=== PATIENT | male | born 1945 | race Caucasian/White ===

== ENCOUNTER 2024-02-10 01:14 | Inpatient (IN) | payer MEDICARE, BC, SELFPAY ==
[2024-02-10] VITALS (12 sets, daily range): BP systolic 111–185; BP diastolic 60–87; PULSE 60–97; RESP 16–90; TEMP 36.4–36.9; O2SAT 93–98; BMI 26.7
--- NOTE | 2024-02-10 | XR_ITS ---
Examination: MRI brain with intravenous contrast Technique: Multiple axial sagittal coronal MRI brain images post intravenous administration 18 cc gadolinium Indications: Syncopal episodes with right frontal neoplastic lesion and surrounding edema on CT brain scan this morning Findings: Enhancing right frontal lobe tumor 3.8 x 2.0 cm with surrounding edema Mass effect with 2 mm shift of the frontal horns to the left and depression, mild right frontal horn on coronal image 11 Adjacent 5 mm enhancing tumor nodule right frontal convexity axial image 22, coronal image 14 Impression: 2 enhancing right frontal lobe 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
--- NOTE | 2024-02-10 01:53 | PD.EDRME ---
Rapid Medical Screening Exam RME Arrival date/time: 02/10/24 01:14 78 year old male present to ED for c/o of GLF, hip, rib, head injury. I have greeted and performed a focused initial assessment of this patient. A comprehensive ED assessment and evaluation of the patient, analysis of all test results, and completion of the medical decision making process will be conducted by additional ED providers. Chief Complaint: Fall Time Seen by Provider: 02/10/24 05:51 Vital signs: Vital Signs Temperature 97.5 F 02/10/24 01:53 Pulse Rate 61 02/10/24 01:53 Respiratory Rate 16 02/10/24 01:53 Blood Pressure 153/87 H 02/10/24 01:53 Pulse Oximetry (%) 98 02/10/24 01:53 Oxygen Delivery Method Room Air 02/10/24 01:53
--- NOTE | 2024-02-10 01:54 | XR_ITS ---
Examination: CT cervical spine without contrast 2-D sagittal reconstructions 2-D coronal reconstructions 3-D reconstructions. Exam date and time:February 10, 2024 0226 hrs. Indications: Patient fell today with injury to the neck, neck pain CTDI:vol (mGy) 7.63 DLP: (mGycm) 187 Technique: Multiple 2 mm axial sections of the cervical spine have been obtained. The coronal and sagittal reconstructions have been obtained. 3-D reconstructions have been obtained. Low dose protocols were performed. One or more of the following dose reduction techniques were used; automated exposure control, adjustment of the mA and/or KV according to patient size, use of iterative reconstruction technique. Findings: Axial sections demonstrate intact base of the skull. C1 exhibit satisfactory relationship to the odontoid. No acute cervical vertebral body fracture seen. Alignment posterior spinous processes satisfactory. Impression: No acute cervical fracture. 10 mm spiculated pulmonary nodule right upper lobe
--- NOTE | 2024-02-10 01:54 | XR_ITS ---
Examination: CT brain head without contrast. 2-D sagittal coronal reconstructions Date and time of exam:February 10, 2024 1426 hrs. Indications: Ground-level fall today with injury to the head, head pain CTDI: vol (mGy):51.3 DLP: (mGycm):1064 Technique: Multiple CT axial sections of the brain have been obtained, 5 mm slice thickness. Contrast has not been administered. 2-D sagittal, coronal reconstructions have been obtained Low dose protocols were performed. One or more of the following dose reduction techniques were used; automated exposure control, adjustment of the mA and/or KV according to patient size, use of iterative reconstruction technique. Findings: 12 mm hypodense lesion right frontal lobe with surrounding prominent edema suspicious for cerebral neoplasm Mass effect upon the anterior right lateral ventricle Shifted frontal horns to the left at least 3 mm No acute hemorrhage Cranial vault intact Chronic right mastoiditis Impression: Recommend brain MRI follow-up, pre and postcontrast, to confirm right frontal lobe cerebral neoplasm, differential would include cerebral metastatic lesion, primary brain tumor Mass effect is above
--- NOTE | 2024-02-10 01:54 | XR_ITS ---
Examination: CT chest, without intravenous contrast. CT abdomen, without intravenous contrast. CT pelvis, without intravenous contrast. 2-D sagittal and coronal reconstructions. 3-D reconstructions. Date and time of exam:February 10, 2024 0232 hrs. Indications: Ground-level fall today with injury to the chest and abdomen, chest pain abdomen pain CTDI vol (mgy) 8.44 DLP (MGycm)659 Technique: Multiple CT images, 3.0 mm slice thickness, obtained chest, abdomen, pelvis, with the high-resolution 64 slice scanner.. Sagittal and coronal 2-D reconstructions are obtained. 3-D reconstructions Low dose protocols were performed. One or more of the following dose reduction techniques were used; automated exposure control, adjustment of the mA and/or KV according to patient size, use of iterative reconstruction technique. Findings: Thoracic aorta pulmonary arteries intact Calcification left main left anterior descending left circumflex coronary arteries No hemopericardium No pneumothorax Multiple bilateral pulmonary nodules, the largest in the right upper lobe 11 mm No pulmonary contusion or hemothorax The manubrium and the body the sternum thoracic vertebral bodies intact Ribs appear Fracture right fourth fifth rib, age-indeterminate No liver splenic or renal laceration No perinephric hematoma Suspicious for small gallstones Abdominal aorta intact, no free blood in the abdomen Negative for pneumoperitoneum Intact urinary bladder No lumbar vertebral body fracture Iliac bones, hips bones of the pelvis intact Impression: Age-indeterminate nondisplaced fractures right fourth and fifth ribs anteriorly Thoracic aorta pulmonary arteries intact Multiple bilateral pulmonary nodules, the largest in the right upper lobe 11 mm, differential would include pulmonary nodular metastatic disease No pneumothorax hemothorax hemopericardium or pulmonary contusion No abdominal parenchymal laceration No free blood in the abdomen or pelvis
[2024-02-10] MEDS: LIDOCAINE 5% 1 PATCH TOP (02:53)
--- NOTE | 2024-02-10 03:43 | PRELIM_ITS ---
CT scan of the head without intravenous contrast (axial sections with sagittal and coronal reformats) . February 10, 2024 at 0226 hoursClinical history: Head injury S/P GLF distracting injuriesFindings:T here shanelle 1.4 x 1cm hypodense lesion with surrounding vasogenic edema in the right frontal lobe. There is no evidence of intracranial hemorrhage or midline shift. There are periventricular white matter h ypodensities, compatible with chronic small vessel ischemia. There is mild volume loss. The calvarium is unremarkable. There is atheromatous calcification of the intracranial arteries.The mastoid air ce lls are partially opacified, more on the right. Small retention cysts or polyps are seen in the right maxillary sinus. The other visualized paranasal sinuses are clear.Impression:1. A 1.4 x1 cm hypodens e lesion with surrounding vasogenic edema in the right frontal lobe, suspicious for neoplasm. Recomme nd clinical correlation, and further evaluationwith MRI with intravenous contrast, if clinically sabino cated.2. No evidence of intracranial hemorrhage or midline shift.3. Chronic small vessel ischemia and volume loss.Discussion Details: Results verbally communicated to : Dr. Green at 03:32 AM 4 Report Electronically Signed By: Jennyfer Covarrubias 02/10/2024 3:43:27 AM [EST]
--- NOTE | 2024-02-10 03:50 | PRELIM_ITS ---
CT scan of the cervical spine without intravenous contrast (axial sections with sagittal and coronal reformats) February 10, 2024 0226 hours Clinical History: head injury, distracting injuries, r/o frac ture No prior study is available for comparison. Findings:The bones are osteopenic. There is no fract ure or subluxation. There is minimal anterolisthesis of C5 on C6 vertebra. There is straightening of the cervical lordosis, which may be due to muscle spasm or positioning. There are multilevel degenera tive changes in the form of marginal osteophytes, decreased disc height, uncinate process, and facet arthrosis, most prominent at the C5-C6 and C6-C7 levels causing mild spinal canal and bilateral neura l foraminal narrowing. The prevertebral soft tissues are unremarkable. There is a 8 mm nodule at the right lung apex.Impression:No evidence of fracture or subluxation.Degenerative changes as described a sara. A 8 mm nodule at the right lung apex. Recommend clinical correlation. Report Electronically Si gned By: Jennyfer Covarrubias 02/10/2024 3:49:41 AM [EST]
--- NOTE | 2024-02-10 04:01 | PRELIM_ITS ---
CT scan of the chest, abdomen and pelvis without intravenous contrast (axial sections with sagittal a nd coronal reformats) February 10, 2024 at 0232 hoursClinical History: Rib/hip injury status post lauren und level fall, rule out fracture.Comparison: No prior study is available for comparison.Findings:The re is a 1.1cm nodule with spiculated margins. There are calcified nodules in the right upper lobe, me asuring up to 5 mm. There are several scattered pulmonary nodules, measuring up to 4 mm. There is no pleural effusion or pneumothorax. The thoracic aorta demonstrates atheromatous calcification without evidence of aneurysm. Coronary artery calcification is noted. There is no mediastinal collection. The re is no pericardial effusion.The liver, spleen, pancreas and adrenals are unremarkable on this nonco ntrast study. Nonobstructing left renal calculus is seen. Dependent hyperdensity is identified within the gallbladder, which may represent sludge.There is evidence of gastric bypass. A moderate amount o f fecal material is present in the colon. The bowel is unremarkable.The urinary bladder is unremarkab le. The prostate is enlarged with its median lobe projecting within the bladder lumen.There is no evelyn e fluid or free air. The abdominal aorta demonstrates atheromatous calcification without evidence of aneurysm.There is mild diffuse subcutaneous fat stranding/edema.No fracture is identified. The bones are osteopenic. Degenerative changes are identified in the spine.Impression:1. No visceral or bony in jury to the chest, abdomen or pelvis.2. Several suspicious pulmonary nodules, the largest in the righ t upper lobe,measuring up to 1.1 cm. Recommend follow up with CT at 3 months.3. Other findings as enrique cribed above. Report Electronically Signed By: Jennyfer Covarrubias 02/10/2024 4:00:48 AM [EST]
--- NOTE | 2024-02-10 05:06 | EDNOTE_ITS ---
ED Fall Injury RME/HPI General Chief Complaint: Fall Stated Complaint: FELL,RIGHT RIB INJURY Time Seen by Provider: 02/10/24 05:51 Arrival date/time: 02/10/24 01:14 RME / HPI RME / HPI Narrative: 02/10/24 01:14 78 year old male present to ED for c/o of GLF, hip, rib, head injury. I have greeted and performed a focused initial assessment of this patient. A comprehensive ED assessment and evaluation of the patient, analysis of all test results, and completion of the medical decision making process will be conducted by additional ED providers. ------ Dr. Caldwell?s Main ED Evaluation: 78yo male presents to the ED for a fall. Patient states he just went down and hit his right side on a barbeque. Patient does not know why he fell. He endorses hitting his head, but no loss of consciousness. Patient endorses having right rib and hip pain. He denies any neck pain, abdominal pain or any other associated symptoms. Patient's notes the patient has an appointment with Dr. Ward on the first week of February due to having calcifications in his left ventricle. Related Data Home Medications ?Medication ?Instructions ?Recorded ?Confirmed amlodipine 2.5 mg tablet 2.5 mg 1XD 02/10/24 02/10/24 hydrochlorothiazide 12.5 mg tablet 12.5 mg 1XD 02/10/24 02/10/24 Previous Rx's ?Medication ?Instructions ?Recorded lidocaine 5 % topical patch 1 patch topical QDAY #30 ea 02/10/24 (Lidoderm) Allergies Allergy/AdvReac Type Severity Reaction Status Date / Time shellfish derived Allergy Severe Anaphylaxis Unverified 02/12/24 08:42 povidone-iodine Allergy Intermediate Hives Verified 02/10/24 01:18 ampicillin Allergy Anaphylaxis Verified 02/10/24 01:18 soap [From Betadine] Allergy Rash Verified 02/10/24 01:18 Review of Systems Review of Systems Systems Reviewed: All systems reviewed, normal except as documented Past Medical History Past Medical History NEUROLOGIC: Negative Neurological Disorders or Seizures CARDIAC: Positive Cardiac Disorders and Hypertension; Negative Congestive Heart Failure RESPIRATORY: Positive Chronic Obstructive Pulmonary Disease (COPD) and Asthma GASTROINTESTINAL: Positive Gastrointestinal Disorders and Gastroesophageal Reflux Disease GENITOURINARY: Positive Genitourinary Disorders, Kidney Stones and Benign Prostatic Hyperplasia; Negative Renal Disease MUSCULOSKELETAL: Negative Musculoskeletal Disorders ENT: Positive Cataracts ENDOCRINE: Negative Endocrine Disorders, Diabetes Mellitus Type 1 or Diabetes Mellitus Type 2 HEMATOLOGIC: Negative Blood Disorders, Anemia or Clotting Problems PSYCHO/SOCIAL: Negative Depression or Anxiety OTHER HISTORY: Negative Hospitalization, Falls, Blood Transfusions, Anesthesia Reactions or Cancer Surgical History SURGICAL: Positive Gastric Bypass Surgery and Vasectomy Social History SMOKING STATUS: Current every day smoker ED Exam Narrative Physical exam: GENERAL APPEARANCE: alert and oriented x 4, well-developed, well-nourished, no acute distress HEENT: Normocephalic, atraumatic; pupils equal, round, reactive to light; EOMI; mucous membranes pink, moist; oropharynx clear NECK: Supple LUNGS: CTABL; no wheezes, no rales, no rhonchi HEART: Regular rate, regular rhythm; normal S1, S2; no murmurs ABDOMEN: non distended; normal BS; soft, no tenderness, no guarding, no rebound; no masses, no organomegaly, no hernia BACK: no CVA tenderness EXTREMITIES: right hip tenderness, no deformity or shortening, no edema NEUROLOGIC: awake; alert and oriented x4; cranial nerves II-XII grossly intact; no focal sensory or motor deficits PSYCHIATRIC: appropriate mood and affect SKIN: warm, dry, normal color; no rashes; 1 cm skin tear to the back of the left hand Course Course Course Narrative: 0600: Care signed out to Dr. Patten (emergency physician). Past medical, surgical, social and family history reviewed. Vitals and home medications reviewed. Results and treatment plan discussed. They will assume the care of the patient at this time and will follow the patient, pending MRI and Xr. Quality Measures none Orders Category Date Time Status COVID-19 Screening Questionnaire NOW Care 02/10/24 11:13 Completed Decision to Admit X1 Care 02/10/24 11:13 Completed MRI Screening NOW Care 02/10/24 05:[address] cervical spine wo con Stat Exams 02/10/24 01:[address] chest abdomen pelvis wo Stat Exams 02/10/24 01:[address] head/brain wo con Stat Exams 02/10/24 01:54 Completed MR head/brain w con Stat Exams 02/10/24 Completed XR femur RT 2V Stat Exams 02/10/24 05:50 Completed BMP [Basic Metabolic Panel] Stat Lab 02/10/24 07:40 Completed HYDROcodone*/APAP 5/325 [[place] 5/325] Med 02/10/24 05:50 Discontinued 1 tab PO X1 ONE Lidocaine 5% Patch Med 02/10/24 01:58 Discontinued 1 patch TOP X1 ONE Vital Signs Vital signs: Vital Signs Temperature 97.5 F 02/10/24 01:53 Pulse Rate 61 02/10/24 01:53 Respiratory Rate 16 02/10/24 01:53 Blood Pressure 153/87 H 02/10/24 01:53 Pulse Oximetry (%) 98 02/10/24 01:53 Oxygen Delivery Method Room Air 02/10/24 01:53 Pulse ox is 98% on room air, which is normal according to my interpretation. Fall MDM Narrative MDM Narrative:: Scribe Attestation: 02/10/24 - Lanette Stark, am scribing for and in the presence of Dr. Caldwell. Patient data External records reviewed:: [facility] previous records (Per chart review, patient was seen here on 04/16/22 for bronchitis.) Clinical information provided by:: patient Social determinants that could affect healthcare access:: none Patient has the following chronic illnesses:: COPD, asthma, HTN How is presenting disease/condition affected by chronic disease/condition?: uneffected by Evaluation data The following diagnostics were reviewed and interpreted by me:: radiology exam(s) Lab and/or radiology exams considered but not ordered:: none Interpretation Summary: Teler[facility] Preliminary Report Draft Patient: KENNETH LUCIO [facility]. Record#: [id number] Birthdate: 1945 Age/Sex: 78 / M Location: [facility] Attending Dr: Ordering Physician: Date of Service: Procedure(s): Accession Number(s): cc: ~ CT scan of the head without intravenous contrast (axial sections with sagittal and coronal reformats). February 10, 2024 at 0226 hours Clinical history: Head injury S/P GLF distracting injuries Findings: There shanelle 1.4 x 1cm hypodense lesion with surrounding vasogenic edema in the right frontal lobe. There is no evidence of intracranial hemorrhage or midline shift. There are periventricular white matter hypodensities, compatible with chronic small vessel ischemia. There is mild volume loss. The calvarium is unremarkable. There is atheromatous calcification of the intracranial arteries.The mastoid air cells are partially opacified, more on the right. Small retention cysts or polyps are seen in the right maxillary sinus. The other visualized paranasal sinuses are clear. Impression: 1. A 1.4 x1 cm hypodense lesion with surrounding vasogenic edema in the right frontal lobe, suspicious for neoplasm. Recommend clinical correlation, and further evaluationwith MRI with intravenous contrast, if clinically indicated. 2. No evidence of intracranial hemorrhage or midline shift. 3. Chronic small vessel ischemia and volume loss. Discussion Details: Results verbally communicated to : Dr. Green at 03:32 AM 02/10/2024 Report Electronically Signed By: Jennyfer Covarrubias 02/10/2024 3:43:27 AM [EST] Telerad Preliminary Report Draft Patient: KENNETH LUCIO [facility]. Record#: [id number] Birthdate: 1945 Age/Sex: 78 / M Location: [facility] Attending Dr: Ordering Physician: Date of Service: Procedure(s): Accession Number(s): cc: ~ CT scan of the cervical spine without intravenous contrast (axial sections with sagittal and coronal reformats) February 10, 2024 0226 hours Clinical History: head injury, distracting injuries, r/o fracture No prior study is available for comparison. Findings: The bones are osteopenic. There is no fracture or subluxation. There is minimal anterolisthesis of C5 on C6 vertebra. There is straightening of the cervical lordosis, which may be due to muscle spasm or positioning. There are multilevel degenerative changes in the form of marginal osteophytes, decreased disc height, uncinate process, and facet arthrosis, most prominent at the C5-C6 and C6-C7 levels causing mild spinal canal and bilateral neural foraminal narrowing. The prevertebral soft tissues are unremarkable. There is a 8 mm nodule at the right lung apex. Impression: No evidence of fracture or subluxation. Degenerative changes as described above. A 8 mm nodule at the right lung apex. Recommend clinical correlation. Report Electronically Signed By: Jennyfer Covarrubias 02/10/2024 3:49:41 AM [EST] Telerad Preliminary Report Draft Patient: KENNETH LUCIO [facility]. Record#: [id number] Birthdate: 1945 Age/Sex: 78 / M Location: [facility] Attending Dr: Ordering Physician: Date of Service: Procedure(s): Accession Number(s): cc: ~ CT scan of the chest, abdomen and pelvis without intravenous contrast (axial sections with sagittal and coronal reformats) February 10, 2024 at 0232 hours Clinical History: Rib/hip injury status post ground level fall, rule out fracture. Comparison: No prior study is available for comparison. Findings: There is a 1.1cm nodule with spiculated margins. There are calcified nodules in the right upper lobe, measuring up to 5 mm. There are several scattered pulmonary nodules, measuring up to 4 mm. There is no pleural effusion or pneumothorax. The thoracic aorta demonstrates atheromatous calcification without evidence of aneurysm. Coronary artery calcification is noted. There is no mediastinal collection. There is no pericardial effusion. The liver, spleen, pancreas and adrenals are unremarkable on this noncontrast study. Nonobstructing left renal calculus is seen. Dependent hyperdensity is identified within the gallbladder, which may represent sludge. There is evidence of gastric bypass. A moderate amount of fecal material is present in the colon. The bowel is unremarkable. The urinary bladder is unremarkable. The prostate is enlarged with its median lobe projecting within the bladder lumen.There is no free fluid or free air. The abdominal aorta demonstrates atheromatous calcification without evidence of aneurysm.There is mild diffuse subcutaneous fat stranding/edema. No fracture is identified. The bones are osteopenic. Degenerative changes are identified in the spine. Impression: 1. No visceral or bony injury to the chest, abdomen or pelvis. 2. Several suspicious pulmonary nodules, the largest in the right upper lobe,measuring up to 1.1 cm. Recommend follow up with CT at 3 months. 3. Other findings as described above. Report Electronically Signed By: Jennyfer Covarrubias 02/10/2024 4:00:48 AM [EST] Medications / Prescriptions Medications or Prescriptions considered but not ordered:: none Medication administrations:: Medication Administration History Discontinued Medications Acetaminophen (Acetaminophen 325 Mg Tablet) 650 mg PO Q6H PRN PRN Reason: Pain (1-3) and Fever >101.5 Stop: 03/11/24 12:37 Hydrocodone Bitart/Acetaminophen (Hydrocodone/Apap 5/325 Tablet) 1 tab PO X1 ONE Stop: 02/10/24 05:51 Last Admin: 02/10/24 06:08 Dose: 1 tab Documented By: JOAN Hydrocodone Bitart/Acetaminophen (Hydrocodone/Apap 10/325 Tab) 1 tab PO Q4H PRN PRN Reason: PAIN SCALE 4-10(Mod-Sev Stop: 02/15/24 12:37 Albuterol/Ipratropium (Albuterol/Ipratropium (Duoneb) Rt Zeynep 3 Ml Nebu) 3 ml INH Q4HRRT PRN PRN Reason: SOB or Wheeze Stop: 03/11/24 14:59 Amlodipine Besylate (Amlodipine Besylate 2.5 Mg Tablet) 2.5 mg PO QDAY [facility] Stop: 03/12/24 08:59 Last Admin: 02/11/24 08:24 Dose: 2.5 mg Documented By: CYN Amlodipine Besylate (Amlodipine Besylate 2.5 Mg Tablet) 2.5 mg PO QDAY [facility] Stop: 03/13/24 18:44 Dexamethasone (Dexamethasone 4 Mg Tablet) 10 mg PO X1 ONE; Protocol Stop: 02/10/24 22:46 Last Admin: 02/11/24 00:25 Dose: 10 mg Documented By: CEDRIC Dexamethasone (Dexamethasone 4 Mg Tablet) 4 mg PO TID [facility]; Protocol Stop: 03/12/24 05:59 Last Admin: 02/11/24 06:37 Dose: 4 mg Documented By: CEDRIC Dexamethasone (Dexamethasone 1 Mg Tablet) 4 mg PO TID [facility]; Protocol Stop: 03/12/24 05:59 Last Admin: 02/12/24 05:19 Dose: 4 mg Documented By: CEDRIC Comments: Admin: 02/11/24 21:45 Dose: 4 mg Documented By: Admin: 02/11/24 13:45 Dose: 4 mg Documented By: CYN Dexamethasone Sodium Phosphate (Dexamethasone Sod Phos Inj 4 Mg/Ml Vial) 4 mg IV TID [facility] Stop: 03/13/24 16:14 Last Admin: 02/12/24 18:07 Dose: Not Given Documented By: PA Non-Admin Reason: Patient Refused Heparin Sodium (Porcine) (Heparin Sod Inj 5000 Unit/Ml Vial) 5,000 unit SC Q12H [facility] Stop: 02/24/24 12:44 Last Admin: 12/01/24 13:10 Dose: Not Given Documented By: CYN Non-Admin Reason: Held for Procedure Admin: 02/11/24 00:24 Dose: 5,000 unit Documented By: CEDRIC Co-signed By: LIVIA Admin: 02/10/24 13:56 Dose: 5,000 unit Documented By: CEDRIC(2) Co-signed By: REBEL Hydralazine HCl (Hydralazine Inj 20 Mg/Ml Vial) 10 mg IVP Q6H PRN PRN Reason: HTN SBP>180, DBP>100 Stop: 03/11/24 12:59 Hydralazine HCl (Hydralazine Hcl 25 Mg Tablet) 25 mg PO BID [facility] Stop: 03/11/24 20:59 Last Admin: 02/12/24 09:35 Dose: 25 mg Documented By: Admin: 02/11/24 20:30 Dose: 25 mg Documented By: Admin: 02/11/24 08:28 Dose: 25 mg Documented By: Admin: 02/10/24 20:59 Dose: 25 mg Documented By: CEDRIC Hydrochlorothiazide (Hydrochlorothiazide 12.5 Mg Capsule) 12.5 mg PO QDAY [facility] Stop: 03/13/24 18:44 Levetiracetam (Levetiracetam 250 Mg Tablet) 500 mg PO BID [facility] Stop: 03/13/24 20:59 Lidocaine (Lidocaine 5% 1 Patch) 1 patch TOP X1 ONE Stop: 02/10/24 01:59 Last Admin: 02/10/24 02:53 Dose: 1 patch Documented By: CVL Lidocaine (Lidocaine 5% 1 Patch) 1 patch TOP UD PRN; Protocol PRN Reason: PAIN Stop: 03/11/24 12:46 Lisinopril (Lisinopril 20 Mg Tablet) 40 mg PO QDAY [facility] Stop: 03/11/24 13:14 Last Admin: 02/12/24 09:34 Dose: 40 mg Documented By: Admin: 02/11/24 08:24 Dose: 40 mg Documented By: Admin: 02/10/24 13:56 Dose: 40 mg Documented By: CEDRIC(2) Nifedipine (Nifedipine 10 Mg Capsule) 10 mg PO QDAY [facility] Stop: 03/12/24 13:59 Last Admin: 02/12/24 09:35 Dose: 10 mg Documented By: Admin: 02/11/24 14:21 Dose: 10 mg Documented By: CYN Ondansetron HCl (Ondansetron Inj 2 Mg/Ml Inj 2 Ml) 4 mg IV Q8HR PRN; Protocol PRN Reason: NAUSEA OR VOMITING Stop: 03/11/24 13:40 Sennosides (Senna Tablet) 1 tab PO QDAY PRN; Protocol PRN Reason: CONSTIPATION Stop: 03/11/24 13:40 Tamsulosin HCl (Tamsulosin Hcl 0.4 Mg Capsule) 0.4 mg PO QDAY [facility] Stop: 03/12/24 08:59 Tamsulosin HCl (Tamsulosin Hcl 0.4 Mg Capsule) 0.4 mg PO HS [facility] Stop: 03/11/24 20:59 Last Admin: 02/11/24 20:31 Dose: 0.4 mg Documented By: Admin: 02/10/24 20:38 Dose: 0.4 mg Documented By: CEDRIC see above Consultations Consultation(s) initiated? (list below): No Diagnosis Fall Differential Diagnosis: other (ICH, fracture, dislocation, contusion) Most likely diagnosis given after review of the tests above:: see below Admission Indicated Admission indicated?: not indicated Admission Request Was there a request for admission?: No Disposition Plan Disposition Plan: other (specify) (Signed out to the next oncoming provider at 0600 pending MRI and XR.) Discharge Plan Plan Patient condition on transfer: Stable Problem List Clinical Impression: Fall, Chest wall contusion, Lung mass, Brain mass
--- NOTE | 2024-02-10 05:50 | XR_ITS ---
Examination: Right femur 2 views Technique: AP lateral right femur 2 views Exam date and time: February 10, 2024 at 0610 hrs. Indications: Patient fell today with injury to the right hip, right hip pain Findings: Subtle radiolucency through the intertrochanteric region right hip on the AP view No hip dislocation Shaft of the femur intact Impression: Recommend coned AP lateral right hip films to exclude nondisplaced right intertrochanteric hip fracture
--- NOTE | 2024-02-10 05:51 | PD.EDADDENDU ---
Emergency Room Addendum Addendum Narrative: Sign out from Dr. Portillo
[2024-02-10] MEDS: HYDROcodone/APAP 5/325 TABLET 1 TAB PO (06:08)
--- NOTE | 2024-02-10 06:13 | EDNOTE_ITS ---
Emergency Room Addendum Addendum Narrative: Care assumed from Dr. Caldwell (emergency physician). Past medical, surgical, social and family history reviewed. Vitals and home medications reviewed. Results and treatment plan discussed. I will assume the care of the patient at this time and will follow the patient, pending MRI results 11:11 Discussed with neurologist Suzy Parrish regarding the patients current status and results, agrees to consult and do further work up 1230 Discussed with admitting team regarding the patients current status and results, agrees to admission ====== Ordering Physician: Kristina Caldwell MD Date of Service: 02/10/24 Procedure(s): MR head/brain w con Accession Number(s): [id number] cc: Rhoda Ortiz MD; Jonathan Orozco MD; Kristina Caldwell MD~ Examination: MRI brain with intravenous contrast Technique: Multiple axial sagittal coronal MRI brain images post intravenous administration 18 cc gadolinium Indications: Syncopal episodes with right frontal neoplastic lesion and surrounding edema on CT brain scan this morning Findings: Enhancing right frontal lobe tumor 3.8 x 2.0 cm with surrounding edema Mass effect with 2 mm shift of the frontal horns to the left and depression, mild right frontal horn on coronal image 11 Adjacent 5 mm enhancing tumor nodule right frontal convexity axial image 22, coronal image 14 Impression: 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
[2024-02-10 08:33] LABS: Anion Gap 6 (7-16); BUN/Creatinine Ratio 28 Ratio (12-20); Blood Urea Nitrogen 22 mg/dL (9-23); Calcium 8.8 mg/dL (8.3-10.6); Carbon Dioxide 26.4 mMol/L (20.0-31.0); Chloride 109 mMol/L (98-107); Creatinine (Component) 0.8 mg/dL (0.6-1.3); Glucose 88 mg/dL (74-106); Osmolality,Calculated 283 (275-295); Potassium 3.9 mMol/L (3.4-5.1); Sodium 141 mMol/L (136-145); eGFR > 60 See Note
--- NOTE | 2024-02-10 09:38 | PC.NURSE ---
Patient transported to MRI via wheelchair accompanied by Marvin gould
--- NOTE | 2024-02-10 12:40 | EKG_ITS ---
[facility] Test Date: 2024-02-10 Pat Name: KENNETH LUCIO Department: Room: - Gender: Male [employer]asing [employer]: : 1945 Requested By: Aleena Jo Order Number: [id number] Reading MD: Aleena Jo Measurements Intervals [place] Rate: 65 P: 91 DE: 186 QRS: 73 QRSD: 123 T: 62 QT: 415 QTc: 433 Interpretive Statements SINUS RHYTHM MODERATE INTRAVENTRICULAR CONDUCTION DELAY [105+ ms QRS DURATION, 80+ ms Q/S IN V1/V2, NO Q AND 60+ ms R IN I/aVL/V5/V6] MODERATE ST DEPRESSION [0.05+ mV ST DEPRESSION] Compared to ECG 04/16/2022 12:47:36 ST (T wave) deviation now present T-wave abnormality no longer present /store/S0/[id number]/ecg/[id number].pdf
--- NOTE | 2024-02-10 12:41 | XR_ITS ---
Examination: CT right femur, without contrast. 2-D sagittal reconstructions. 2-D coronal reconstructions. 3-D reconstructions. Date and time of exam:February 10, 2024 1305 hrs. Indications: Patient fell today with injury to the right femur, right femur pain CTDI: vol (mGy):14.8 DLP: (mGycm):908 Technique: Multiple 1.25 mm axial sections of the right femur have been obtained. 2-D sagittal and coronal reconstructions have been obtained. 3-D reconstructions have been obtained. Low dose protocols were performed. One or more of the following dose reduction techniques were used; automated exposure control, adjustment of the mA and/or KV according to patient size, use of iterative reconstruction technique. Findings: No acute right hip fracture or hip dislocation Shaft of the femur intact Axial image 38 demonstrates 20 mm osteolytic lesion in the right femoral neck Impression: No acute hip or femoral shaft fracture Axial image 38 demonstrates 20 mm osteolytic lesion right femoral neck, recommend elective MRI right hip pelvis follow-up, pre and postcontrast to exclude osseous metastatic disease
[2024-02-10 13:51] LABS: Collection Type, Urine Clean Catch
[2024-02-10] MEDS: Lisinopril 20 MG TABLET 40 MG PO (13:56)
[2024-02-10] MEDS: HEPARIN SOD INJ 5000 UNIT/ML VIAL SC (13:56)
--- NOTE | 2024-02-10 14:02 | ESHP_ITS ---
<Statement entered by Caroline Hernandez MD - 02/13/24 14:49> I reviewed above note and agree with findings and plans. I have also personally examined the patient with medicine team and went over assessment and plan with medical team including internal sales engineer and resident physician. <Statement entered by Melanie Aguirre DO - 02/10/24 21:18> Senior attestation: Patient was examined and case was reviewed with team including attending physician. Note reviewed, I agree with most of its contents and agree with the patient's care. Patient is a 78 year old male with history of hypertension, BPH, COPD/asthma, gastric bypass surgery, and years of tobacco use who presented to [facility] following ground-level fall, however was found to have evidence of frontal lobe lesions, possible intertrochanteric fracture, fourth and fifth rib fractures, and bilateral pulmonary nodes on imaging. Will consult neurologist Dr. Parrish for further evaluation/management of frontal lobe lesions on MRI, oncologist Dr. Anne for recommendations regarding pulmonary nodule, and orthopedic surgeon Dr. Khan regarding possible right intertrochanteric fracture. Will also order orthostatic vitals, EKG, and physical therapy given history of recent ground- level fall. Melanie Aguirre DO PGY-3 Documentation for date of: 02/10/24 HPI History of Present Illness Chief complaint: Status post ground-level mechanical fall History of present illness: Mr. Ayala is a 78-year-old male with past medical history of hypertension, BPH, COPD/asthma and gastric bypass surgery who presented to [facility] with a chief complaint of status post ground-level fall. According to the patient he just went down and hit his right side on a barbecue, endorses hitting his head, but no loss of consciousness. Patient did endorse right-sided chest pain and discomfort in right upper leg region, patient does have a history of multiple falls, reports having a fall 3 days ago and another about a week ago, reports he has always had poor balance which has progressed over the last 6 months. Patient follows up with primary care physician closely outpatient, he does report that he was found to have right upper lung pulmonary nodule which was followed closely outpatient. During patient's workup in the emergency department patient's MRI showed 2 frontal lobe lesions possibly metastatic, femur x-ray showed suspicion of intertrochanteric fracture, CT abdomen pelvis showed fourth and fifth rib fracture along with bilateral pulmonary nodules. Neurology was consulted in the emergency department and recommended admission for further workup. Patient otherwise denies any shortness of breath, left- sided chest pain and headache. ED Course: ED Vitals: ED vitals significant for BP 153/87, P61, RR 16, temp 97.5, O2 sat 98 on room air ED Labs: ED labs significant for RBC 3.42, hemoglobin 11.4, hematocrit 33%, RDW 47.7, potassium 3.9, urine protein 1+, urine ketones 3+, urine RBC 5, urine WBC 14, urine squamous epithelial cells, urine tox negative ED Imaging:Brain MRI positive for 2 enhancing right frontal lobe lesions most consistent with cerebral metastatic disease Cervical spine CT positive for 10 mm spiculated pulmonary nodule right upper lobe, negative for any acute cervical fracture CT abdomen pelvis chest positive for Age-indeterminate nondisplaced fractures right fourth and fifth ribs anteriorly Multiple bilateral pulmonary nodules, the largest in the right upper lobe [address] head showed mass effect and femur x-ray was suspicious for nondisplaced right intertrochanteric hip fracture ED Treatment: Patient was given lidocaine patch and [place] x 1 in emergency department. Neurology was consulted Review of Systems Review of Systems Narrative Review of Systems: ROS: -CONSTITUTIONAL: Denies weight loss, fever and chills. -HEENT: Denies changes in vision and hearing. -RESPIRATORY: Denies SOB and cough. -CV: Denies palpitations and Chest Pain. Positive for right sided traumatic chest pain secondary to fall. -GI: Denies abdominal pain, nausea, vomiting,constipation and diarrhea. -: Denies dysuria and urinary frequency. -MSK: Denies myalgia and joint pain. Positive for right lower leg discomfort. -SKIN: Denies rash and pruritus. -NEUROLOGICAL: Denies headache and syncope. -PSYCHIATRIC: Denies recent changes in mood. Denies anxiety and depression. Past Medical History Past Medical History Comments PMH COMMENT: PMH: Positive for hypertension, BPH, COPD/asthma PSHx: Gastric bypass surgery, vasectomy Allergies: Ampicillin, Betadine, povidone iodine, shellfish Social history: -Smoking: Reports actively smoking, 2 packs/day -Alcohol Use: Reports daily alcohol use -Illicit Drug Use: Denies -Martial Status: Family History: Denies any family history of lung cancer Exam Vital Signs Temp Pulse Resp BP Pulse Ox O2 Del Method 98.3 F 97 16 185/83 H 93 L Room Air 02/10/24 13:42 02/10/24 13:56 02/10/24 13:42 02/10/24 13:56 02/10/24 13:42 02/10/24 13:42 Narrative Exam Physical Exam General: Awake and in no acute distress. Conversational and non-toxic appearing. HEENT: Normocephalic, atraumatic, mucous membranes moist. Heart: Regular rate and rhythm, no murmurs. Lungs: Clear to auscultation with no wheezing or crackles. Abdomen: Soft, nondistended, nontender, positive bowel sounds. . Neurologic: Alert and oriented x3, no gross neurological deficit, and patient able to move all 4 extremities. Extremities: No edema. Skin: No rash or ecchymoses. Tenderness noted on right chest. Results: Labs 02/10/24 13:41 02/10/24 13:41 Labs: BMP 02/10/24 07:40 Sodium 141 Potassium 3.9 Chloride 109 H Carbon Dioxide 26.4 BUN 22 Creatinine 0.8 Glucose 88 Calcium 8.8 Quality Measures Quality Measures none Advance care planning discussed with:: patient Medications Home Medications and Allergies Home Medications ?Medication ?Instructions ?Recorded ?Confirmed ?Type esomeprazole magnesium 40 mg 40 mg PO QDAY GERD ##0 06/24/14 02/11/21 History capsule,delayed release (Nexium) multivitamin,tx-minerals 1 tab PO QDAY SUPPLEMENT #0 tabs 06/24/14 02/11/21 History (Multi-Vitamin HP/Minerals capsule) tamsulosin 0.4 mg capsule (Flomax) 0.4 mg PO HS Prostate ##0 06/24/14 02/11/21 History fluticasone furoate 200 1 inh inhalation QDAY 12/19/18 02/11/21 History mcg-vilanterol 25 mcg/dose inhalation powder (Breo Ellipta) lisinopril 30 mg tablet 40 mg PO QDAY 05/11/20 02/11/21 History Allergies Allergy/AdvReac Type Severity Reaction Status Date / Time povidone-iodine Allergy Intermediate Hives Verified 02/10/24 01:18 ampicillin Allergy Anaphylaxis Verified 02/10/24 01:18 soap [From Betadine] Allergy Rash Verified 02/10/24 01:18 SHELLFISH Allergy Severe Anaphylaxis Uncoded 02/10/24 01:18 Visit Medications Acetaminophen (Acetaminophen 325 Mg Tablet) 650 mg PO Q6H PRN PRN Reason: Pain (1-3) and Fever >101.5 Stop: 03/11/24 12:37 Hydrocodone Bitart/Acetaminophen (Hydrocodone/Apap 10/325 Tab) 1 tab PO Q4H PRN PRN Reason: PAIN SCALE 4-10(Mod-Sev Stop: 02/15/24 12:37 Albuterol/Ipratropium (Albuterol/Ipratropium (Duoneb) Rt Zeynep 3 Ml Nebu) 3 ml INH Q4HRRT PRN PRN Reason: SOB or Wheeze Stop: 03/11/24 14:59 Amlodipine Besylate (Amlodipine Besylate 2.5 Mg Tablet) 2.5 mg PO QDAY [facility] Stop: 03/12/24 08:59 Heparin Sodium (Porcine) (Heparin Sod Inj 5000 Unit/Ml Vial) 5,000 unit SC Q12H PHILIP Stop: 02/24/24 12:44 Last Admin: 02/10/24 13:56 Dose: 5,000 unit Hydralazine HCl (Hydralazine Inj 20 Mg/Ml Vial) 10 mg IVP Q6H PRN PRN Reason: HTN SBP>180, DBP>100 Stop: 03/11/24 12:59 Lidocaine (Lidocaine 5% 1 Patch) 1 patch TOP UD PRN; Protocol PRN Reason: PAIN Stop: 03/11/24 12:46 Lisinopril (Lisinopril 20 Mg Tablet) 40 mg PO QDAY PHILIP Stop: 03/11/24 13:14 Last Admin: 02/10/24 13:56 Dose: 40 mg Ondansetron HCl (Ondansetron Inj 2 Mg/Ml Inj 2 Ml) 4 mg IV Q8HR PRN; Protocol PRN Reason: NAUSEA OR VOMITING Stop: 03/11/24 13:40 Sennosides (Senna Tablet) 1 tab PO QDAY PRN; Protocol PRN Reason: CONSTIPATION Stop: 03/11/24 13:40 Tamsulosin HCl (Tamsulosin Hcl 0.4 Mg Capsule) 0.4 mg PO HS [facility] Stop: 03/11/24 20:59 Discontinued Medications Hydrocodone Bitart/Acetaminophen (Hydrocodone/Apap 5/325 Tablet) 1 tab PO X1 ONE Stop: 02/10/24 05:51 Last Admin: 02/10/24 06:08 Dose: 1 tab Lidocaine (Lidocaine 5% 1 Patch) 1 patch TOP X1 ONE Stop: 02/10/24 01:59 Last Admin: 02/10/24 02:53 Dose: 1 patch Tamsulosin HCl (Tamsulosin Hcl 0.4 Mg Capsule) 0.4 mg PO QDAY PHILIP Stop: 03/12/24 08:59 Assessment & Plan Plan Assessment and plan: Summary: # Ground-level mechanical fall # Right-sided rib fracture #? Suspected right hip intertrochanteric fracture -Patient has history of multiple falls, attributes it to poor balance which has progressed in the last 6 months -Patient reports fall 2 days ago and another one 1 week ago. -Patient reports hitting his head during fall, denies loss of consciousness -CT abdomen pelvis chest positive for Age-indeterminate nondisplaced fractures right fourth and fifth ribs -CT head showed mass effect and femur x-ray was suspicious for nondisplaced right intertrochanteric hip fracture Plan: -Orthostatic vitals -Telemonitoring -Monitor CBC CMP in a.m. -Obtain CT right femur -Consulted orthopedics, appreciate recommendations -Neurology consulted, appreciate recommendations -Fall precautions -Referral to physical therapy -[place] as needed for pain, lidocaine patch as needed for pain # Spiculated 10 mm pulmonary nodule right upper lung # Bilateral pulmonary nodules # 2 frontal lobe lesions -Patient reports following up with primary care physician for right upper lung nodule. Currently active smoker, more than 2 packs/day. -Brain MRI positive for 2 enhancing right frontal lobe lesions most consistent with cerebral metastatic disease -Cervical spine CT positive for 10 mm spiculated pulmonary nodule right upper lobe, negative for any acute cervical fracture -CT abdomen pelvis chest positive Multiple bilateral pulmonary nodules, the largest in the right upper lobe 11 mm Plan: -Ordered biopsy right upper lung -Consulted oncology, appreciate recommendations -High suspicion of malignancy -Consulted neurology, appreciate recommendations #Hypertension -Started patient on lisinopril 40 mg daily -Started amlodipine 2.5 mg p.o. daily starting tomorrow -Hydralazine as needed for blood pressure more than 180/100 #COPD/asthma #BPH -Pending med reconciliation -DuoNebs every 4 hours RT as needed -Flomax 0.4 mg p.o. at bedtime DVT prophylaxis: Heparin GI prophylaxis: Not indicated Diet: Cardiac Lines: Peripheral IV Code status: Full code Case discussed with Attending Dr. Hernandez and Dr. Aguirre PGY3. Aleena Jo PGY1
[2024-02-10 14:05] LABS: Basophils # (Auto) 0.1 Thou/mm3 (0.0-0.2); Basophils % (Auto) 1 % (0-2.5); Eosinophils # (Auto) 0.1 Thou/mm3 (0.0-0.5); Eosinophils % (Auto) 1 % (0-10); Hemoglobin 11.4 g/dL (13.5-16.0); Immature Granulocytes % (Auto) 0 % (0-0); Immature Granulocytes Auto 0.02 Thou/mm3 (0.00-0.00); Lymphocytes # (Auto) 1.7 Thou/mm3 (1.0-4.8); Lymphocytes % (Auto) 24 % (10-50); Mean Corpuscular HGB Conc 34.5 g/dl (31.0-37.0); Mean Corpuscular Hemoglobin 33.3 pg (25.0-35.0); Mean Corpuscular Volume 97 fL (80-100); Monocytes # (Auto) 0.7 Thou/mm3 (0.0-0.8); Monocytes % (Auto) 10 % (0-12); Neutrophils # (Auto) 4.6 Thou/mm3 (1.8-7.7); Neutrophils % (Auto) 64 % (37-80); Nucleated Red Blood Cell % 0 /100 WBC (0); Platelet Count 226 Thou/mm3 (140-440); RDW Standard Deviation 47.7 fL (35.1-43.9); Red Blood Count 3.42 Miln/mm3 (4.50-5.90); White Blood Count 7.1 Thou/mm3 (3.8-10.6)
[2024-02-10 14:16] LABS: Amphetamine/Methamp Scrn,U Negative (Negative); Barbiturate Screen,Urine Negative (Negative); Benzodiazepines Screen,Urine Negative (Negative); Benzoylecgonine Screen, Ur Negative (Negative); Fentanyl Screen,Urine Negative (Negative); Opiate Screen,Urine Negative (Negative); THC Screen,Urine Negative (Negative)
[2024-02-10 14:36] LABS: Bilirubin,Urine Negative (Negative); Blood,Urine Negative (Negative); Clarity,Urine Clear (Clear/Hazy); Color,Urine Yellow (Lt Yel-Yel); Glucose, Urine Negative (Negative); Ketones,Urine 3+ (Negative); Leukocyte Esterase,Urine Negative (Negative); Nitrite,Urine Negative (Negative); PH,Urine 5.5 (5.0-7.0); Protein,Urine 1+ (Neg - Trace); RBC,Urine 5 /hpf (0-3); Specific Gravity,Urine 1.026 (1.001-1.035); Squamous Epithelial Cell,Urine 2 /hpf (0-5); Urobilinogen,Urine Negative mg/dL (0.0-1.0); WBC,Urine 14 /hpf (0-5)
[2024-02-10 14:41] LABS: Alanine Aminotransferase 12 U/L (10-49); Albumin, Serum 3.9 gm/dL (3.4-4.8); Albumin/Globulin Ratio 1.7 (1.2-2.2); Alkaline Phosphatase 81 U/L (46-116); Anion Gap 7 (7-16); Aspartate Amino Transferase < 10 U/L (0-34); BUN/Creatinine Ratio 24 Ratio (12-20); Blood Urea Nitrogen 19 mg/dL (9-23); Calcium 9.1 mg/dL (8.3-10.6); Calcium (Corrected) 9.2 mg/dL (8.5-10.1); Carbon Dioxide 25.1 mMol/L (20.0-31.0); Chloride 107 mMol/L (98-107); Creatinine (Component) 0.8 mg/dL (0.6-1.3); Globulin 2.3 gm/dL (2.3-3.5); Glucose 93 mg/dL (74-106); Osmolality,Calculated 279 (275-295); Potassium 3.9 mMol/L (3.4-5.1); Sodium 139 mMol/L (136-145); Total Protein 6.2 gm/dL (5.7-8.2); eGFR > 60 See Note
--- NOTE | 2024-02-10 20:02 | PC.NURSE ---
DR gilliland notified of pt bp 171/87 hr 106. States he will look into it. No current new orders at this time.
[2024-02-10] MEDS: TAMSULOSIN HCL 0.4 MG CAPSULE PO (20:38)
--- NOTE | 2024-02-10 20:44 | PC.NURSE ---
Dr gilliland at bedside and requested to recheck BP and manual HR. BP now 178/62 HR 64. Provider aware. No new orders at this time.
[2024-02-10] MEDS: hydrALAZINE HCL 25 MG TABLET PO (20:59)
--- NOTE | 2024-02-10 22:21 | ESCONSULT_ITS ---
History of Present Illness Data of Consult Requesting Physician: Caroline Hernandez MD Primary Care Provider: Rhoda Ortiz MD Consult Narrative History of present illness: Mr. Ayala is a 78-year-old male with hypertension, benign prostatic hypertrophy, COPD, obesity status post gastric bypass surgery, chronic nicotine dependence presented to the ER status post ground-level fall. Patient stated that he just went down and hit his right side on a barbecue and hit his head without losing consciousness. He does complain of right-sided chest pain and discomfort in the right thigh. He has been having frequent falls, last fall 3 days ago and a week ago as he has been having poor balance over the last 6 months gradually getting worse. He was found to have a nodule in the right upper lobe of the lung which he has been followed closely as an outpatient with with periodic CT chest. No family history of cancer/witnessed seizures. Workup in the ER: Vitals: significant for BP 153/87, P61, RR 16, temp 97.5, O2 sat 98 on room air Labs: ED labs significant for RBC 3.42, hemoglobin 11.4, hematocrit 33%, RDW 47.7, potassium 3.9, urine protein 1+, urine ketones 3+, urine RBC 5, urine WBC 14, urine squamous epithelial cells, urine tox negative Imaging:Brain MRI positive for 2 enhancing right frontal lobe lesions most consistent with cerebral metastatic disease Cervical spine CT positive for 10 mm spiculated pulmonary nodule right upper lobe, negative for any acute cervical fracture CT abdomen pelvis chest positive for Age-indeterminate nondisplaced fractures right fourth and fifth ribs anteriorly Multiple bilateral pulmonary nodules, the largest in the right upper lobe [address] head showed mass effect and femur x-ray was suspicious for nondisplaced right intertrochanteric hip fracture Patient was given lidocaine patch and [place] x 1 in emergency department. Neurology was consulted and I advised admission for further workup and radiation oncology consult cc:: cc: Caroline Hernandez MD Review of Systems Review of Systems Systems Reviewed: All systems reviewed, normal except as documented Past Medical History Past Medical History Comments PMH COMMENT: PMH: Positive for hypertension, BPH, COPD/asthma PSHx: Gastric bypass surgery, vasectomy Allergies: Ampicillin, Betadine, povidone iodine, shellfish Social history: -Smoking: Reports actively smoking, 2 packs/day -Alcohol Use: Reports daily alcohol use -Illicit Drug Use: Denies -Martial Status: Family History: Denies any family history of lung cancer Meds Home Medications and Allergies Home Medications ?Medication ?Instructions ?Recorded ?Confirmed ?Type amlodipine 2.5 mg tablet 2.5 mg 1XD 02/10/24 02/10/24 History hydrochlorothiazide 12.5 mg tablet 12.5 mg 1XD 02/10/24 02/10/24 History Allergies Allergy/AdvReac Type Severity Reaction Status Date / Time povidone-iodine Allergy Intermediate Hives Verified 02/10/24 01:18 ampicillin Allergy Anaphylaxis Verified 02/10/24 01:18 soap [From Betadine] Allergy Rash Verified 02/10/24 01:18 SHELLFISH Allergy Severe Anaphylaxis Uncoded 02/10/24 01:18 Exam - Neurology Vital Signs Temp Pulse Resp BP Pulse Ox O2 Del Method O2 Flow Rate 98 F 65 16 178/62 H 95 Room Air 2 02/10/24 20:00 02/10/24 20:59 02/10/24 20:00 02/10/24 20:59 02/10/24 20:00 02/10/24 20:00 02/10/24 20:00 Narrative Exam GENERAL APPEARANCE: Well hydrated, well-nourished in no acute distress. HEENT: Normocephalic, atraumatic, extraocular movements intact. Pupils: Equal reacting to light and accommodation NECK: Supple, no JVD or bruits. CARDIOVASULAR: Heart: S1, S2 heard, regular without S3-S4 or murmur no rubs or gallops. LUNGS/CHEST: Clear to auscultation bilaterally. No rails, rhonchi, or wheezing. Normal inspection. ABDOMEN: Soft, nontender, with normal bowel sounds. No pulsatile masses. No rebound, rigidity, or guarding. Normal inspection and palpation. EXTREMITIES: Normal inspection and palpation. No edema, clubbing or cyanosis. SKIN: Warm and dry without rashes. Normal inspection. MUSCULOSKELETAL: No cervical, thoracic, lumbar or midline bony tenderness. Normal inspection. NEURO: Alert, awake and oriented x3. Cranial nerves: II through XII grossly intact. Speech and language: Normal with no dysarthria or dysphasia. Motor system: Tone and bulk: Normal: Strength: 5 out of 5 in all 4 extremities; No pronator drift noted. Deep tendon reflexes: 2+ bilaterally symmetrical. Plantar reflex: Downgoing bilaterally. Sensory system: Intact to all modalities of sensation bilaterally. Coordination: Intact to [id number] and [id number] test bilaterally. No ataxia, no dysmetria, or dysdiadochokinesia noted. No intention tremors noted. Gait: Not tested. No signs of meningeal irritation noted. PSYCHIATRIC: Normal mood and affect. Results Labs 02/10/24 13:41 02/10/24 13:41 Labs: Short CBC 02/10/24 Range/Units 13:41 WBC 7.1 (3.8-10.6) Thou/mm3 Hgb 11.4 L (13.5-16.0) g/dL Hct 33.0 L (41.0-53.0) % Plt Count 226 (140-440) Thou/mm3 BMP 02/10/24 02/10/24 07:40 13:41 Sodium 141 139 Potassium 3.9 3.9 Chloride 109 H 107 Carbon Dioxide 26.4 25.1 BUN 22 19 Creatinine 0.8 0.8 Glucose 88 93 Calcium 8.8 9.1 Liver Function 02/10/24 Range/Units 13:41 Total Bilirubin 1.0 (0.3-1.2) mg/dL AST < 10 (0-34) U/L ALT 12 (10-49) U/L Alkaline Phosphatase 81 (46-116) U/L Albumin 3.9 (3.4-4.8) gm/dL Urine 02/10/24 Range/Units 13:39 Urine Color Yellow (Lt Yel-Yel) Urine Clarity Clear (Clear/Hazy) Urine pH 5.5 (5.0-7.0) Ur Specific [place] 1.026 (1.001-1.035) Urine Protein 1+ A (Neg - Trace) Urine Glucose (UA) Negative (Negative) Assessment & Plan Assessment and plan (1) Brain mass: Status: Acute Assessment and plan: MRI brain showed contrast-enhancing lesions in the right frontal lobe with the pressure effect: likely metastasis, most likely from a primary lung mass Continue to monitor for any seizures. Add dexamethasone 10 mg x 1 followed by 4 mg every 8 hours Recommended radiation oncology consultation (2) Lung mass: Status: Acute Assessment and plan: Recommend tissue biopsy to confirm the diagnosis of primary (3) Fall: Status: Chronic Assessment and plan: Could have been a manifestation of brain mets. Will check B12, vitamin D, A1c to look for other secondary causes (4) Nicotine dependence with current use: Status: Chronic Assessment and plan: Advised smoking cessation
[2024-02-11] VITALS (13 sets, daily range): BP systolic 123–170; BP diastolic 63–87; PULSE 60–99; RESP 16–24; TEMP 36.4–37.1; O2SAT 93–98
[2024-02-11 00:06] LABS: Glucose Estimated Average 97 mg/dL (80-131)
[2024-02-11] MEDS: HEPARIN SOD INJ 5000 UNIT/ML VIAL SC (00:24)
[2024-02-11] MEDS: dexAMETHasone 4 MG TABLET 10 MG PO (00:25)
[2024-02-11 06:14] LABS: Basophils # (Auto) 0.1 Thou/mm3 (0.0-0.2); Basophils % (Auto) 1 % (0-2.5); Eosinophils % (Auto) 0 % (0-10); Hematocrit 36.3 % (41.0-53.0); Hemoglobin 12.7 g/dL (13.5-16.0); Immature Granulocytes % (Auto) 0 % (0-0); Immature Granulocytes Auto 0.02 Thou/mm3 (0.00-0.00); Lymphocytes # (Auto) 0.6 Thou/mm3 (1.0-4.8); Lymphocytes % (Auto) 10 % (10-50); Mean Corpuscular Hemoglobin 33.3 pg (25.0-35.0); Mean Corpuscular Volume 95 fL (80-100); Monocytes # (Auto) 0.1 Thou/mm3 (0.0-0.8); Monocytes % (Auto) 2 % (0-12); Neutrophils # (Auto) 5.3 Thou/mm3 (1.8-7.7); Neutrophils % (Auto) 87 % (37-80); Nucleated Red Blood Cell % 0 /100 WBC (0); Platelet Count 207 Thou/mm3 (140-440); RDW Standard Deviation 44.1 fL (35.1-43.9); Red Blood Count 3.81 Miln/mm3 (4.50-5.90); White Blood Count 6.1 Thou/mm3 (3.8-10.6)
[2024-02-11] MEDS: dexAMETHasone 4 MG TABLET PO (06:37)
[2024-02-11 07:01] LABS: Alanine Aminotransferase 11 U/L (10-49); Albumin, Serum 4.2 gm/dL (3.4-4.8); Albumin/Globulin Ratio 1.8 (1.2-2.2); Alkaline Phosphatase 92 U/L (46-116); Anion Gap 9 (7-16); Aspartate Amino Transferase 15 U/L (0-34); BUN/Creatinine Ratio 21 Ratio (12-20); Bilirubin,Total 1.2 mg/dL (0.3-1.2); Blood Urea Nitrogen 15 mg/dL (9-23); Calcium 9.2 mg/dL (8.3-10.6); Calcium (Corrected) 9.2 mg/dL (8.5-10.1); Carbon Dioxide 24.8 mMol/L (20.0-31.0); Cardiac Risk Estimate 2.1 RATIO (4.0-6.7); Chloride 101 mMol/L (98-107); Cholesterol 149 mg/dL (132-200); Creatinine (Component) 0.7 mg/dL (0.6-1.3); Estimated Creatinine Clearance 98.3 mL/min (>60); Globulin 2.4 gm/dL (2.3-3.5); Glucose 119 mg/dL (74-106); HDL Cholesterol 72 mg/dL (40-60); LDL Cholesterol,Calculated 65 mg/dL (0-130); Magnesium 1.7 mg/dL (1.6-2.6); Osmolality,Calculated 271 (275-295); Phosphorous 3.2 mg/dL (2.4-5.1); Potassium 3.7 mMol/L (3.4-5.1); Sodium 135 mMol/L (136-145); Thyroid Stimulating Hormone 0.65 uIU/mL (0.55-4.78); Total Protein 6.6 gm/dL (5.7-8.2); Triglycerides 62 mg/dL (30-150); eGFR > 60 See Note
[2024-02-11 07:57] LABS: Partial Thromboplastin Time 28.2 Seconds (22.0-36.0); Prothrombin Time 11.2 Seconds (9.0-12.2)
[2024-02-11] MEDS: Lisinopril 20 MG TABLET 40 MG PO (08:24)
[2024-02-11] MEDS: amLODIPine BESYLATE 2.5 MG TABLET PO (08:24)
[2024-02-11] MEDS: hydrALAZINE HCL 25 MG TABLET PO ×2 (08:28→20:30)
--- NOTE | 2024-02-11 11:29 | ESPR_ITS ---
<Statement entered by Caroline Hernandez MD - 02/18/24 12:41> I reviewed above note and agree with findings and plans. I have also personally examined the patient with medicine team and went over assessment and plan with medical team including internal controls analyst and resident physician. <Statement entered by Abi Jimenez MD - 02/11/24 18:36> Patient was seen and examined at bedside. 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 We held the patient heparin we will keep him n.p.o. after midnight for biopsy tomorrow. Physical therapy was ordered. Patient anticipated to be discharged after the procedure at this documentations. - Patient's plan and care discussed with my attending, Dr. David Jimenez MD Internal Medicine PGY-2 Documentation for date of: 02/11/24 Subjective Subjective Interval history: Patient examined hypertension. No acute overnight events. Has no complaints at this time, however is wondering when he is going to get his CT-guided biopsy done today. Does endorse 10 pound weight loss over the past 3 months, says he golfs 4 times a week, and has says he has been experiencing falls for the past 6 months. Exam Vital Signs Temp Pulse Resp BP Pulse Ox O2 Del Method O2 Flow Rate 97.9 F 65 17 123/63 94 L Nasal Cannula 2 02/11/24 08:00 02/11/24 08:28 02/11/24 08:00 02/11/24 08:28 02/11/24 08:00 02/11/24 08:00 02/11/24 06:42 Narrative Exam General: Awake and in no acute distress. Conversational and non-toxic appearing. HEENT: Normocephalic, atraumatic, mucous membranes moist. Heart: Regular rate and rhythm, no murmurs. Lungs: Clear to auscultation with no wheezing or crackles. Abdomen: Soft, nondistended, nontender, positive bowel sounds. . Neurologic: Alert and oriented x3, no gross neurological deficit, and patient able to move all 4 extremities. Extremities: No edema. Skin: No rash or ecchymoses. Tenderness noted on right chest. Objective Labs 02/11/24 05:08 02/11/24 05:08 Labs: Laboratory Results - last 24 hr 02/10/24 02/10/24 02/11/24 13:39 13:41 05:08 WBC 7.1 6.1 RBC 3.42 L 3.81 L Hgb 11.4 L 12.7 L Hct 33.0 L 36.3 L MCV 97 95 MCH 33.3 33.3 MCHC 34.5 35.0 RDW Std Deviation 47.7 H 44.1 H Plt Count 226 207 Neut % (Auto) 64 87 H Lymph % (Auto) 24 10 [place] % (Auto) 10 2 Eos % (Auto) 1 0 Baso % (Auto) 1 1 Neut # (Auto) 4.6 5.3 Lymph # (Auto) 1.7 0.6 L [place] # (Auto) 0.7 0.1 Eos # (Auto) 0.1 0.0 Baso # (Auto) 0.1 0.1 Immature Gran # (Auto) 0.02 H 0.02 H Absolute Nucleated RBC 0.00 0.00 Immature Gran % 0 0 Nucleated RBC % 0 0 PT 11.2 INR 1.0 APTT 28.2 Sodium 139 135 L Potassium 3.9 3.7 Chloride 107 101 Carbon Dioxide 25.1 24.8 Anion Gap 7 9 BUN 19 15 Creatinine 0.8 0.7 Estim Creat Clear Calc 86.0 98.3 eGFR > 60 > 60 BUN/Creatinine Ratio 24 H 21 H Glucose [address] Glu mg/dL 97 Hemoglobin A1c 5.0 Calculated Osmolality 279 271 L Calcium 9.1 9.2 Corrected Calcium 9.2 9.2 Phosphorus 3.2 Magnesium 1.7 Total Bilirubin 1.0 1.2 AST < 10 15 ALT 12 11 Alkaline Phosphatase 81 92 Total Protein 6.2 6.6 Albumin 3.9 4.2 Globulin 2.3 2.4 Albumin/Globulin Ratio 1.7 1.8 Triglycerides 62 Cholesterol 149 LDL Cholesterol, Calc 65 HDL Cholesterol 72 H Cholesterol/HDL Ratio 2.1 L TSH 0.65 Ur Collection Type Clean Catch Urine Color Yellow Urine Clarity Clear Urine pH 5.5 Ur Specific [place] 1.026 Urine Protein 1+ A Urine Glucose (UA) Negative Urine Ketones 3+ A Urine Blood Negative Urine Nitrite Negative Urine Bilirubin Negative Urine Urobilinogen (Auto) Negative Ur Leukocyte Esterase Negative Urine RBC 5 H Urine WBC 14 H Ur Squamous Epith Cells 2 Urine Bacteria None Urine Opiates Screen Negative Urine Fentanyl Screen Negative Ur Barbiturates Screen Negative U Amphetamin/Meth Scrn Negative U Benzodiazepines Scrn Negative U Cocaine Metab Screen Negative U Marijuana (THC) Screen Negative Quality Measures Quality Measures none Advance care planning discussed with:: patient Assessment & Plan Assessment Current Active Medications: Generic Name Dose Route Start Last Admin Trade Name Freq PRN Reason Stop Dose Admin Acetaminophen 650 mg 02/10/24 12:38 Acetaminophen 325 Mg Tablet PO 03/11/24 12:37 Q6H PRN Pain (1-3) and Fever >101.5 Hydrocodone Bitart/Acetaminophen 1 tab 02/10/24 12:38 Hydrocodone/Apap 10/325 Tab PO 02/15/24 12:37 Q4H PRN PAIN SCALE 4-10(Mod-Sev Albuterol/Ipratropium 3 ml 02/10/24 12:34 Albuterol/Ipratropium (Duoneb) Rt Zeynep 3 Ml Nebu INH 03/11/24 14:59 Q4HRRT PRN SOB or Wheeze Amlodipine Besylate 2.5 mg 02/11/24 09:00 02/11/24 08:24 Amlodipine Besylate 2.5 Mg Tablet PO 03/12/24 08:59 2.5 mg QDAY PHILIP Administration Dexamethasone 4 mg 02/11/24 14:00 Dexamethasone 1 Mg Tablet PO 03/12/24 05:59 TID PHILIP Protocol Heparin Sodium (Porcine) 5,000 unit 02/10/24 12:45 02/11/24 00:24 Heparin Sod Inj 5000 Unit/Ml Vial SC 02/24/24 12:44 5,000 unit Q12H PHILIP Administration Hydralazine HCl 10 mg 02/10/24 12:48 Hydralazine Inj 20 Mg/Ml Vial IVP 03/11/24 12:59 Q6H PRN HTN SBP>180, DBP>100 Hydralazine HCl 25 mg 02/10/24 21:00 02/11/24 08:28 Hydralazine Hcl 25 Mg Tablet PO 03/11/24 20:59 25 mg BID PHILIP Administration Lidocaine 1 patch 02/10/24 12:47 Lidocaine 5% 1 Patch TOP 03/11/24 12:46 UD PRN PAIN Protocol Lisinopril 40 mg 02/10/24 13:15 02/11/24 08:24 Lisinopril 20 Mg Tablet PO 03/11/24 13:14 40 mg QDAY PHILIP Administration Ondansetron HCl 4 mg 02/10/24 13:41 Ondansetron Inj 2 Mg/Ml Inj 2 Ml IV 03/11/24 13:40 Q8HR PRN NAUSEA OR VOMITING Protocol Sennosides 1 tab 02/10/24 13:41 Senna Tablet PO 03/11/24 13:40 QDAY PRN CONSTIPATION Protocol Tamsulosin HCl 0.4 mg 02/10/24 21:00 02/10/24 20:38 Tamsulosin Hcl 0.4 Mg Capsule PO 03/11/24 20:59 0.4 mg HS PHILIP Administration Plan Assessment Naif is a 78-year-old male with past medical history of hypertension, BPH, COPD/asthma and gastric bypass surgery who is currently admitted s/p status post ground-level fall, generalized weakness, and for further evaluation of pulmonary nodules, and brain lesions. #Spiculated 10 mm pulmonary nodule right upper lung #Bilateral pulmonary nodules #Metastatic brain lesions -Patient reports following up with primary care physician for right upper lung nodule. Currently active smoker, more than 2 packs/day. -Brain MRI positive for 2 enhancing right frontal lobe lesions most consistent with cerebral metastatic disease -Cervical spine CT positive for 10 mm spiculated pulmonary nodule right upper lobe, negative for any acute cervical fracture -CT abdomen pelvis chest positive Multiple bilateral pulmonary nodules, the largest in the right upper lobe 11 mm Concern for malignancy is high at this time Will do biopsy of right upper lung and will further workup patient Possible metastatic brain lesions from lung as primary source Plan: -CT-guided biopsy of right upper lung to be done tomorrow -Consulted oncology, appreciate recommendations -Consulted neurology, appreciate recommendations ?Dexamethasone 4 mg 3 times daily with 10 mg loading dose #Ground-level mechanical fall #Right-sided rib fracture #? Suspected right hip intertrochanteric fracture -Patient has history of multiple falls, attributes it to poor balance which has progressed in the last 6 months -Patient reports fall 2 days ago and another one 1 week ago. -Patient reports hitting his head during fall, denies loss of consciousness -CT abdomen pelvis chest positive for Age-indeterminate nondisplaced fractures right fourth and fifth ribs -CT head showed mass effect and femur x-ray was suspicious for nondisplaced right intertrochanteric hip fracture ?Concern for right hip intra trochanteric fracture, however femur CT ruled it out Plan: -Orthostatic vitals -Telemonitoring -Monitor CBC CMP in a.m. -Obtain CT right femur -Consulted orthopedics, appreciate recommendations -Neurology consulted, appreciate recommendations -Fall precautions -PT eval to decide for patient if home health or will need SNF upon DC -Mobile as needed for pain, lidocaine patch as needed for pain #hx of hypertension ?Lisinopril 40 mg home med ?Added nifedipine 10 mg ?Hydralazine as needed #hx of COPD/asthma Smoking history, 2 packs a day for about 30 years -Pending med reconciliation -DuoNebs every 4 hours RT as needed #hx of BPH -Flomax 0.4 mg p.o. at bedtime #Health maintenance DVT prophylaxis: Heparin GI prophylaxis: Not indicated Diet: Cardiac Lines: Peripheral IV Code status: Full code Case discussed with my attending physician, Dr. Hernandez, and my senior resident, Dr. Jimenez. Fatuma Grullon, PGY-1
[2024-02-11] MEDS: dexAMETHasone 1 MG TABLET 4 MG PO ×2 (13:45→21:45)
--- NOTE | 2024-02-11 13:47 | PC.SS ---
Naif Ayala is a 78-year-old male admitted to ID for Ground Level Fall. SS conducted bedside contact with the patient to complete initial assessment and to discuss discharge planning. Patient confirmed demographic information. Patient identifies his Anastasia Ayala [phone] as his surrogate decision maker. Patient resides at home with his . Pt states he is able to complete all ADL?s independently, no need for any source of DME. Pts PCP is Rhoda Maier and pharmacy of choice is [facility]. DC option discussed and pt wishes to return home. Pts will provide transportation upon DC. No further intervention required at this time, social media director would be available to address any further concerns. DC Plan: Home Contact: Anastasia Ayala [phone] PCP: Mateo Ortiz
[2024-02-11] MEDS: NIFEdipine 10 MG CAPSULE PO (14:21)
--- NOTE | 2024-02-11 16:18 | PC.SS ---
Rounding: pending lung bx
[2024-02-11] MEDS: TAMSULOSIN HCL 0.4 MG CAPSULE PO (20:31)
--- NOTE | 2024-02-11 23:20 | VVPN_ITS ---
Telemedicine visit statement This visit was conducted with the use of interactive audio and video telecommunications system that permits real time communication between the patient and the provider. Patient's verbal consent for virtual visit was obtained on 02/11/24 at 2320. Documentation for date of: 02/11/24 Subjective Subjective Interval history: [facility], no new symptoms reported. No headache or dizziness or weakness in the upper or lower extremities. Virtual exam Vital Signs Temp Pulse Resp BP Pulse Ox O2 Del Method O2 Flow Rate 97.6 F 70 16 126/69 96 Room Air 1 02/11/24 20:00 02/11/24 21:21 02/11/24 21:21 02/11/24 20:30 02/11/24 21:21 02/11/24 20:00 02/11/24 21:21 Objective Labs 02/12/24 04:40 02/12/24 04:40 Labs: Laboratory Results - last 24 hr 02/10/24 02/11/24 13:41 05:08 WBC 6.1 RBC 3.81 L Hgb 12.7 L Hct 36.3 L MCV 95 MCH 33.3 MCHC 35.0 RDW Std Deviation 44.1 H Plt Count 207 Neut % (Auto) 87 H Lymph % (Auto) 10 [place] % (Auto) 2 Eos % (Auto) 0 Baso % (Auto) 1 Neut # (Auto) 5.3 Lymph # (Auto) 0.6 L [place] # (Auto) 0.1 Eos # (Auto) 0.0 Baso # (Auto) 0.1 Immature Gran # (Auto) 0.02 H Absolute Nucleated RBC 0.00 Immature Gran % 0 Nucleated RBC % 0 PT 11.2 INR 1.0 APTT 28.2 Sodium 135 L Potassium 3.7 Chloride 101 Carbon Dioxide 24.8 Anion Gap 9 BUN 15 Creatinine 0.7 Estim Creat Clear Calc 98.3 eGFR > 60 BUN/Creatinine Ratio 21 H Glucose [address] Glu mg/dL 97 Hemoglobin A1c 5.0 Calculated Osmolality 271 L Calcium 9.2 Corrected Calcium 9.2 Phosphorus 3.2 Magnesium 1.7 Total Bilirubin 1.2 AST 15 ALT 11 Alkaline Phosphatase 92 Total Protein 6.6 Albumin 4.2 Globulin 2.4 Albumin/Globulin Ratio 1.8 Triglycerides 62 Cholesterol 149 LDL Cholesterol, Calc 65 HDL Cholesterol 72 H Cholesterol/HDL Ratio 2.1 L TSH 0.65 Assessment & Plan Assessment (1) Brain mass: Status: Acute Assessment and plan: MRI brain showed contrast-enhancing lesions in the right frontal lobe with the pressure effect: likely metastasis, most likely from a primary lung mass Continue to monitor for any seizures. Continue with the Decadron 4 mg every 8 and Keppra for prophylaxis. Patient would benefit from biopsy of the brain mass to confirm the diagnosis even though it is most likely metastasis from a lung mass. (2) Lung mass: Status: Acute Assessment and plan: Recommend tissue biopsy to confirm the diagnosis of primary, but the nodules are too small to biopsy there is risk involved (3) Fall: Status: Chronic Assessment and plan: With fracture could have been a manifestation of bone metastasis (4) Nicotine dependence with current use: Status: Chronic Assessment and plan: Advised smoking cessation
[2024-02-12] VITALS (8 sets, daily range): BP systolic 122–150; BP diastolic 61–83; PULSE 65–82; RESP 18–94; TEMP 36–36.7; O2SAT 92–96
[2024-02-12 01:53] LABS: Vitamin B12 421 pg/mL (211-911); Vitamin D 25 Hydroxy Total 25.5 ng/mL (7.3-40.2)
--- NOTE | 2024-02-12 05:13 | PC.NURSE ---
Dr mishra called to get clarification if pt can get morning PO meds since he is NPO for lung biopsy today. Paulie states to give morning PO medication with small sips of water.
[2024-02-12] MEDS: dexAMETHasone 1 MG TABLET 4 MG PO (05:19)
[2024-02-12 05:58] LABS: Basophils % (Auto) 0 % (0-2.5); Eosinophils % (Auto) 0 % (0-10); Hematocrit 36.2 % (41.0-53.0); Hemoglobin 12.9 g/dL (13.5-16.0); Immature Granulocytes % (Auto) 0 % (0-0); Immature Granulocytes Auto 0.06 Thou/mm3 (0.00-0.00); Lymphocytes # (Auto) 0.8 Thou/mm3 (1.0-4.8); Lymphocytes % (Auto) 5 % (10-50); Mean Corpuscular HGB Conc 35.6 g/dl (31.0-37.0); Mean Corpuscular Hemoglobin 33.1 pg (25.0-35.0); Mean Corpuscular Volume 93 fL (80-100); Monocytes # (Auto) 1.1 Thou/mm3 (0.0-0.8); Monocytes % (Auto) 7 % (0-12); Neutrophils # (Auto) 13.6 Thou/mm3 (1.8-7.7); Neutrophils % (Auto) 88 % (37-80); Nucleated Red Blood Cell % 0 /100 WBC (0); Platelet Count 222 Thou/mm3 (140-440); RDW Standard Deviation 43.7 fL (35.1-43.9); White Blood Count 15.5 Thou/mm3 (3.8-10.6)
[2024-02-12 06:40] LABS: Alanine Aminotransferase 10 U/L (10-49); Albumin/Globulin Ratio 1.7 (1.2-2.2); Alkaline Phosphatase 83 U/L (46-116); Anion Gap 8 (7-16); Aspartate Amino Transferase 14 U/L (0-34); BUN/Creatinine Ratio 23 Ratio (12-20); Bilirubin,Total 0.7 mg/dL (0.3-1.2); Blood Urea Nitrogen 21 mg/dL (9-23); Calcium 9.5 mg/dL (8.3-10.6); Calcium (Corrected) 9.5 mg/dL (8.5-10.1); Carbon Dioxide 25.8 mMol/L (20.0-31.0); Chloride 103 mMol/L (98-107); Cholesterol 148 mg/dL (132-200); Creatinine (Component) 0.9 mg/dL (0.6-1.3); Estimated Creatinine Clearance 76.4 mL/min (>60); Globulin 2.3 gm/dL (2.3-3.5); Glucose 120 mg/dL (74-106); HDL Cholesterol 74 mg/dL (40-60); LDL Cholesterol,Calculated 63 mg/dL (0-130); Osmolality,Calculated 277 (275-295); Potassium 3.8 mMol/L (3.4-5.1); Sodium 137 mMol/L (136-145); Total Protein 6.3 gm/dL (5.7-8.2); Triglycerides 55 mg/dL (30-150); eGFR > 60 See Note
--- NOTE | 2024-02-12 09:15 | PD.ONCCONS ---
HPI Data of Consult Consult date: 02/12/24 Requesting Physician: Caroline Hernandez MD Primary Care Provider: Rhoda Ortiz MD Consult Narrative Reason for consult: Suspected brain mets History of present illness: Patient is a 78-year-old long-term smoker admitted following a fall, with CT of brain 02/10/2024 revealing 12 mm hypodense lesion right frontal lobe with prominent surrounding edema with mass effect on the anterior right lateral ventricle with skilled frontal horns to the left at least 3 mm. Brain MRI revealed 2 enhancing right frontal lobe lesions, 3.8 x 2.8 cm with surrounding edema and adjacent 5 mm enhancing tumor right frontal convexity. Femur CT osteolytic right femoral neck but no fracture. There were multiple bilateral pulmonary nodules the largest right upper lobe 11 mm. Patient has been scheduled for right upper lobe lung biopsy today. Referred for oncological consultation. cc:: cc: Caroline Hernandez MD Past Medical History Family History OTHER FAMILY HX: Denies family history of lung cancer Surgical History OTHER SURGICAL HX: Gastric bypass surgery vasectomy Social History SOCIAL: Heavy active smoking of 2 packs a day. Past Medical History Comments PMH COMMENT: Hypertension BPH COPD asthma Meds Home Medications and Allergies Home Medications ?Medication ?Instructions ?Recorded ?Confirmed ?Type amlodipine 2.5 mg tablet 2.5 mg 1XD 02/10/24 02/10/24 History hydrochlorothiazide 12.5 mg tablet 12.5 mg 1XD 02/10/24 02/10/24 History Allergies Allergy/AdvReac Type Severity Reaction Status Date / Time shellfish derived Allergy Severe Anaphylaxis Unverified 02/12/24 08:42 povidone-iodine Allergy Intermediate Hives Verified 02/10/24 01:18 ampicillin Allergy Anaphylaxis Verified 02/10/24 01:18 soap [From Betadine] Allergy Rash Verified 02/10/24 01:18 Exam Vital Signs Temp Pulse Resp BP Pulse Ox O2 Del Method O2 Flow Rate 97.6 F 71 18 150/83 H 95 Room Air 1 02/12/24 07:42 02/12/24 07:42 02/12/24 07:42 02/12/24 07:42 02/12/24 07:42 02/12/24 07:42 02/12/24 04:00 Narrative Exam Appearing comfortable but lethargic Results Labs 02/12/24 04:40 02/12/24 04:40 Labs: Short CBC 02/12/24 Range/Units 04:40 WBC 15.5 H D (3.8-10.6) Thou/mm3 Hgb 12.9 L (13.5-16.0) g/dL Hct 36.2 L (41.0-53.0) % Plt Count 222 (140-440) Thou/mm3 BMP 02/12/24 04:40 Sodium 137 Potassium 3.8 Chloride 103 Carbon Dioxide 25.8 BUN 21 Creatinine 0.9 Glucose 120 H Calcium 9.5 Liver Function 02/12/24 Range/Units 04:40 Total Bilirubin 0.7 D (0.3-1.2) mg/dL AST 14 (0-34) U/L ALT 10 (10-49) U/L Alkaline Phosphatase 83 (46-116) U/L Albumin 4.0 (3.4-4.8) gm/dL Assessment and Plan Additional Assessment & Plan Additional Plan: 1. Likely brain mets and lung CA in heavy smoker. Patient on Decadron. 2. Possible bone mets right hip no acute fracture noted following a fall.. 2. Right upper lobe lung mass biopsy pending. 3. Will follow. Thank for allowing me to evaluate this patient.
[2024-02-12] MEDS: Lisinopril 20 MG TABLET 40 MG PO (09:34)
[2024-02-12] MEDS: NIFEdipine 10 MG CAPSULE PO (09:35)
[2024-02-12] MEDS: hydrALAZINE HCL 25 MG TABLET PO (09:35)
--- NOTE | 2024-02-12 10:09 | PC.NURSE ---
Revwed biopsy order with Dr. Orozco. Per MD this is a high risk procedure with 100% chance of Pneumothorax, wants this explained to the patient before proceeding. Made Lorrie JONES aware, will follow up this afternoon.
--- NOTE | 2024-02-12 10:19 | PC.NURSE ---
Notified Dr. Jimenez IR called and notified me about the risks of lung biopsy. Vesna JONES made a note also. Will contiue to monitor patient.
--- NOTE | 2024-02-12 14:36 | PC.SS ---
Rounding note: patient is pending higher level of care transfer.
--- NOTE | 2024-02-12 14:37 | ESPR_ITS ---
<Statement entered by Caroline Hernandez MD - 02/18/24 12:42> I reviewed above note and agree with findings and plans. I have also personally examined the patient with medicine team and went over assessment and plan with medical team including chemical engineering intern and resident physician. <Statement entered by Abi Jimenez MD - 02/12/24 15:44> Patient was seen and examined at bedside. Patient was supposed to be scheduled for lung biopsy however interventional radiologist Dr Orozco suggested that the patient likely has a small to be biopsied and it carries high risk of complications with less than 25% success rate. For that reason we contacted Dr. Anne in which she recommended the patient to be transferred for neurosurgical consultation for possible biopsy. At this time we are continuing his dexamethasone, same time we will keep holding heparin for anticipated surgical intervention by the neurosurgeon. Instead, we will start the patient on SCDs due to the high risk of thromboembolism. - Patient's plan and care discussed with my attending, Dr. David Jimenez MD Internal Medicine PGY-2 Documentation for date of: 02/12/24 Subjective Subjective Interval history: Patient examined at bedside today. No acute overnight events. Patient has no complaints, and is wondering when biopsy will be done today. Exam Vital Signs Temp Pulse Resp BP Pulse Ox O2 Del Method O2 Flow Rate 96.8 F 69 18 139/74 H 94 L Room Air 1 02/12/24 12:00 02/12/24 13:58 02/12/24 13:58 02/12/24 12:00 02/12/24 13:58 02/12/24 12:00 02/12/24 04:00 Narrative Exam General: Awake and in no acute distress. Conversational and non-toxic appearing. HEENT: Normocephalic, atraumatic, mucous membranes moist. Heart: Regular rate and rhythm, no murmurs. Lungs: Clear to auscultation with no wheezing or crackles. Abdomen: Soft, nondistended, nontender, positive bowel sounds. . Neurologic: Alert and oriented x3, no gross neurological deficit, and patient able to move all 4 extremities. Extremities: No edema. Skin: No rash or ecchymoses. Tenderness noted on right chest. Objective Labs 02/12/24 04:40 02/12/24 04:40 Labs: Laboratory Results - last 24 hr 02/10/24 02/12/24 13:41 04:40 WBC 15.5 H D RBC 3.90 L Hgb 12.9 L Hct 36.2 L MCV 93 MCH 33.1 MCHC 35.6 RDW Std Deviation 43.7 Plt Count 222 Neut % (Auto) 88 H Lymph % (Auto) 5 L [place] % (Auto) 7 Eos % (Auto) 0 Baso % (Auto) 0 Neut # (Auto) 13.6 H Lymph # (Auto) 0.8 L [place] # (Auto) 1.1 H Eos # (Auto) 0.0 Baso # (Auto) 0.0 Immature Gran # (Auto) 0.06 H Absolute Nucleated RBC 0.00 Immature Gran % 0 Nucleated RBC % 0 Sodium 137 Potassium 3.8 Chloride 103 Carbon Dioxide 25.8 Anion Gap 8 BUN 21 Creatinine 0.9 Estim Creat Clear Calc 76.4 eGFR > 60 BUN/Creatinine Ratio 23 H Glucose 120 H Calculated Osmolality 277 Calcium 9.5 Corrected Calcium 9.5 Magnesium 2.0 Total Bilirubin 0.7 D AST 14 ALT 10 Alkaline Phosphatase 83 Total Protein 6.3 Albumin 4.0 Globulin 2.3 Albumin/Globulin Ratio 1.7 Triglycerides 55 Cholesterol 148 LDL Cholesterol, Calc 63 HDL Cholesterol 74 H Cholesterol/HDL Ratio 2.0 L Vitamin B12 421 25-OH Vitamin D Total 25.5 Quality Measures Quality Measures none Advance care planning discussed with:: patient Assessment & Plan Assessment Current Active Medications: Generic Name Dose Route Start Last Admin Trade Name Freq PRN Reason Stop Dose Admin Acetaminophen 650 mg 02/10/24 12:38 Acetaminophen 325 Mg Tablet PO 03/11/24 12:37 Q6H PRN Pain (1-3) and Fever >101.5 Hydrocodone Bitart/Acetaminophen 1 tab 02/10/24 12:38 Hydrocodone/Apap 10/325 Tab PO 02/15/24 12:37 Q4H PRN PAIN SCALE 4-10(Mod-Sev Albuterol/Ipratropium 3 ml 02/10/24 12:34 Albuterol/Ipratropium (Duoneb) Rt Zeynep 3 Ml Nebu INH 03/11/24 14:59 Q4HRRT PRN SOB or Wheeze Dexamethasone 4 mg 02/11/24 14:00 02/12/24 05:19 Dexamethasone 1 Mg Tablet PO 03/12/24 05:59 4 mg TID PHILIP Administration Protocol Heparin Sodium (Porcine) 5,000 unit 02/10/24 12:45 02/11/24 13:10 Heparin Sod Inj 5000 Unit/Ml Vial SC 02/24/24 12:44 Not Given Q12H PHILIP Hydralazine HCl 10 mg 02/10/24 12:48 Hydralazine Inj 20 Mg/Ml Vial IVP 03/11/24 12:59 Q6H PRN HTN SBP>180, DBP>100 Hydralazine HCl 25 mg 02/10/24 21:00 02/12/24 09:35 Hydralazine Hcl 25 Mg Tablet PO 03/11/24 20:59 25 mg BID PHILIP Administration Lidocaine 1 patch 02/10/24 12:47 Lidocaine 5% 1 Patch TOP 03/11/24 12:46 UD PRN PAIN Protocol Lisinopril 40 mg 02/10/24 13:15 02/12/24 09:34 Lisinopril 20 Mg Tablet PO 03/11/24 13:14 40 mg QDAY PHILIP Administration Nifedipine 10 mg 02/11/24 14:00 02/12/24 09:35 Nifedipine 10 Mg Capsule PO 03/12/24 13:59 10 mg QDAY PHILIP Administration Ondansetron HCl 4 mg 02/10/24 13:41 Ondansetron Inj 2 Mg/Ml Inj 2 Ml IV 03/11/24 13:40 Q8HR PRN NAUSEA OR VOMITING Protocol Sennosides 1 tab 02/10/24 13:41 Senna Tablet PO 03/11/24 13:40 QDAY PRN CONSTIPATION Protocol Tamsulosin HCl 0.4 mg 02/10/24 21:00 02/11/24 20:31 Tamsulosin Hcl 0.4 Mg Capsule PO 03/11/24 20:59 0.4 mg HS PHILIP Administration Plan Assessment Naif is a 78-year-old male with past medical history of hypertension, BPH, COPD/asthma and gastric bypass surgery who is currently admitted s/p status post ground-level fall, generalized weakness, and for further evaluation of pulmonary nodules, and brain lesions. #Spiculated 10 mm pulmonary nodule right upper lung #Bilateral pulmonary nodules #Metastatic brain lesions Patient reports following up with primary care physician for right upper lung nodule. Currently active smoker, more than 2 packs/day. Brain MRI positive for 2 enhancing right frontal lobe lesions most consistent with cerebral metastatic disease Cervical spine CT positive for 10 mm spiculated pulmonary nodule right upper lobe, negative for any acute cervical fracture CT abdomen pelvis chest positive Multiple bilateral pulmonary nodules, the largest in the right upper lobe 11 mm Concern for malignancy is high at this time Possible metastatic brain lesions from lung as primary source Spoke with radiology, lesion is too small to biopsy Spoke with Radiation oncologist, Dr. Anne, who recommended either for pt to be transferred for brain biopsy to further workup for malignancy. However, with patient's higher probability of malignancy and metastasis, patient can also pursue radiation therapy for brain to give symptomatic relief As patient is currently symptomatic from his brain metastases, patient would benefit from radiation, there is risk for patient to experience further worsening edema and possible herniation if patient does not pursue treatment sooner rather than later, dexamethasone 4 mg 3 times daily to help with reducing swelling, however patient needs treatment Will initiate transfer process in the meantime Spoke with neurosurgery resident, Dr. Jaimes, at [facility], discussed case, pending further evaluation/recommendations/acceptance Will initiate medicine for seizure prophylaxis Plan: ?Consulted oncology, appreciate recommendations ?Consulted neurology, appreciate recommendations ?Dexamethasone 4 mg 3 times daily with 10 mg loading dose ?Transfer process initiated for neurosurgical eval ?*Keppra 500 twice daily #Ground-level mechanical fall #Right-sided rib fracture #? Suspected right hip intertrochanteric fracture -Patient has history of multiple falls, attributes it to poor balance which has progressed in the last 6 months -Patient reports fall 2 days ago and another one 1 week ago. -Patient reports hitting his head during fall, denies loss of consciousness -CT abdomen pelvis chest positive for Age-indeterminate nondisplaced fractures right fourth and fifth ribs -CT head showed mass effect and femur x-ray was suspicious for nondisplaced right intertrochanteric hip fracture ?Concern for right hip intra trochanteric fracture, however femur CT ruled it out Plan: -Orthostatic vitals -Telemonitoring -Monitor CBC CMP in a.m. -Obtain CT right femur -Consulted orthopedics, appreciate recommendations -Neurology consulted, appreciate recommendations -Fall precautions -PT eval to decide for patient if home health or will need SNF upon DC -[place] as needed for pain, lidocaine patch as needed for pain #Hx of hypertension ?Lisinopril 40 mg home med ?Added nifedipine 10 mg ?Hydralazine as needed #hx of COPD/asthma Smoking history, 2 packs a day for about 30 years -Pending med reconciliation -DuoNebs every 4 hours RT as needed #hx of BPH -Flomax 0.4 mg p.o. at bedtime #Health maintenance DVT prophylaxis: Heparin GI prophylaxis: Not indicated Diet: Cardiac Lines: Peripheral IV Code status: Full code Case discussed with my attending physician, Dr. Hernandez, and my senior resident, Dr. Jimenez. Fatuma Grullon, PGY-1
--- NOTE | 2024-02-12 14:48 | PC.CM ---
Addendum entered by Ewa Paul RN 02/12/24 18:13: 1813 called [facility], spoke to Tarsha and informed tow picker time is 1930. Addendum entered by Ewa Paul RN 02/12/24 18:06: 1802 transfer packet is complete with CD inside including all signatures. Kept with pt chart, informed bedside nurse and unit control clerk. Bedside nurse and unit control clerk aware about tow picker time is 1930. [address]. Grullon came to pt room along with Dr. Jimenez. Both drMirza's explained pt reason for transfer and risks and benefits. Pt agrees to be transferred and signed the pink form. 1740 went to pt room to get signatures on pink form but pt is denying to go. I explained the reason for transfer. Pt still refused. I offered to come back later after he rethinks and speaks to his family at bedside. I informed bedside nurse and . Dr. Grullon stated he will come speak to pt. Addendum entered by Ewa Paul RN 02/12/24 17:21: 1721 sent paperwork to [facility] through [employer]. Called [facility], spoke to [facility] and setup the transport. crop supervisor time is 1930. [address] fabian. Transfer packet is complete with CD, pending pt signature. Addendum entered by Ewa Paul RN 02/12/24 17:10: [address] Grullon. 1704 received call from Radha from [facility] that she has a bed for the pt. Pt is accepted at [facility]. Address [address] [place] [id number]. Accepted by Adán Quinonez. [address] [facility]. Room 1515, bed 1. Report to be called at [phone]. Addendum entered by Ewa Paul RN 02/12/24 16:22: 1615 received call from [facility], spoke to Radha that pt is accepted at [facility] as an emergent transfer. Accepting Dr. is Adán Quinonez. She needs TBA and DC summary faxed over. Addendum entered by Ewa Paul RN 02/12/24 16:21: error in name of the transfer physician representative in previous note 1612 received call from Radha at [facility]. She stated her neuro-surgery/resident Dr. Jaimes is on the line and wants to speak to Dr. Grullon. Conference call connected. Dr. Jaimes stated they are accepting the pt Addendum entered by Ewa Paul RN 02/12/24 16:14: 1612 received call from Bonnie at [facility]. She stated her neuro-surgery/resident Dr. Jaimes is on the line and wants to speak to Dr. Grullon. Conference call connected. Dr. Jaimes stated they are accepting the pt. Addendum entered by Ewa Palu RN 02/12/24 15:07: 1507 clinicals sent to [facility]. Original Note: 1450 received call from Linda at [facility], she stated her neuro-surgery is on the line and wants to speak to Dr. Grullon. Conference call connected. 1448 images pushed over to [facility] via [employer]. 1438 called [facility], spoke to Linda and initiated the transfer. She stated to send clinicals and push images. [address] Grullon that pt needs to be transferred to tertiary care hospital for neuro-surgical services. Pt has nodule in brain and needs brain biopsy to rule out cerebral metastatic disease. Pt has pulmonary nodule and per IR it's too small to be biopsied.
--- NOTE | 2024-02-12 15:12 | ESDS_ITS ---
<Statement entered by Caroline Hernandez MD - 02/18/24 12:42> I reviewed above note and agree with findings and plans. I have also personally examined the patient with medicine team and went over assessment and plan with medical team including programming internship and resident physician. <Statement entered by Abi Jimenez MD - 02/13/24 18:40> Patient was seen and examined at bedside. And agree on the assessment and plan of this patient. - Patient's plan and care discussed with my attending, Dr. David Jimenez MD Internal Medicine PGY-2 Planned Discharge Date 02/12/24 DS: Providers Provider Date of admission: 02/10/24 12:34 Primary care physician: Rhoda Ortiz MD Admitting Provider: Caroline Hernandez MD Attending Provider on Admission: Caroline Hernandez MD Consults: 02/10/24 12:42 Consult to Orthopedic Stat Comment: s/p fall, rib fracture, suspected femur fracture Consulting Provider: Felipe Khan 02/10/24 12:43 Consult to Neurology / Tele-Neurology Stat Comment: MRI findings Frontal lobe lesions Consulting Provider: Quinn Parrish 02/10/24 13:13 Referral Physical Therapy Routine Comment: Physician Instructions: 02/10/24 13:41 Consult to Oncology Routine Comment: Suspected CA Lung with mets to Brain Consulting Provider: Anatoliy Anne Attending Provider on DC: Caroline Hernandez MD Discharging Provider: Caroline Hernandez MD DS: Diagnosis Problem List Completed Was Problem List Reviewed/Reconciled?: Yes Hospital Course Hospital Course Hospital course: Mr. Ayala is a 78-year-old male with past medical history of hypertension, BPH, COPD/asthma and gastric bypass surgery who was admitted to [facility] on 02/10/2024 for ground level fall and findings of pulmonary nodules and metas tatic brain lesions. Patient had been experiencing ground-level falls for the past 6 months, and had come to the ER on 02/09 because he had not been feeling right and decided to get worked up. Patient had come into the ER with vitals of blood pressure 3/87, pulse 61, respiratory rate 16, temperature of 97.5, O2 saturation at 98% room air. He was worked up and was found to have RBC 3.42, hemoglobin 11.4, hematocrit 33%, RDW 47.7, potassium 3.9, urine protein 1+, urine ketones 3+, urine RBC 5, urine WBC 14, urine squamous epithelial cells, urine tox negative. Imaging was done and Brain MRI positive for 2 enhancing right frontal lobe lesions most consistent with cerebral metastatic disease. Cervical spine CT positive for 10 mm spiculated pulmonary nodule right upper lobe, negative for any acute cervical fracture. CT abdomen pelvis chest positive for Age-indeterminate nondisplaced fractures right fourth and fifth ribs anteriorly Multiple bilateral pulmonary nodules, the largest in the right upper lobe [address] head showed mass effect and femur x-ray was suspicious for nondisplaced right intertrochanteric hip fracture. Patient was given lidocaine patch and [place] x 1 in emergency department. Medicine and neurology was consulted and then patient was admitted to floors. Further imaging with CT of femur ruled out trochanteric hip fracture. Neurology seen patient and determined that brain lesions to be consistent with brain metastases and started patient on Decadron 4 mg 3 times daily. Lung biopsy was scheduled to be done by radiology, however sizes of nodule were too small for adequate biopsy to be done. Radiation oncology was consulted and had recommended for patient to be transferred for neurosurgery evaluation with brain biopsy as there is concern for worsening edema and possible herniation. Radiation oncology also would like to treat as well, however would like brain biopsy for definitive diagnosis despite high probability of brain metastases from primary lung. Spoke with [facility] Neurosurgery resident, Dr. Jaimes, who reviewed case and had accepted patient to facility, with recommendations to start Keppra 500 BID, NPO at midnight and to hold any A/C prior to transfer. acceptance. Pt was accepted and to be transferred. #Spiculated 10 mm pulmonary nodule right upper lung #Bilateral pulmonary nodules #Metastatic brain lesions #Ground-level mechanical fall #Right-sided rib fracture #Hx of hypertension #hx of COPD/asthma #hx of BPH Patient seen and care discussed with my senior resident, Dr. Jimenez , and my attending physician, Dr. David Grullon, PGY-1 Time Spent with Patient Time attestation: Total time spent providing and/or coordinating discharge services: Time spent: Greater than 30 minutes Exam Vital Signs Temp Pulse Resp BP Pulse Ox O2 Del Method O2 Flow Rate 96.8 F 69 18 139/74 H 94 L Room Air 1 12/02/24 12:00 02/12/24 13:58 02/12/24 13:58 02/12/24 12:00 02/12/24 13:58 02/12/24 12:00 02/12/24 04:00 Narrative Exam General: Awake and in no acute distress. Conversational and non-toxic appearing. HEENT: Normocephalic, atraumatic, mucous membranes moist. Heart: Regular rate and rhythm, no murmurs. Lungs: Clear to auscultation with no wheezing or crackles. Abdomen: Soft, nondistended, nontender, positive bowel sounds. . Neurologic: Alert and oriented x3, no gross neurological deficit, and patient able to move all 4 extremities. Extremities: No edema. Skin: No rash or ecchymoses. Tenderness noted on right chest. Discharge Plan Plan Patient condition on transfer: Stable Prescriptions/Referrals Prescriptions/Med Rec: New lidocaine [Lidoderm] 5 % adhesive patch,medicated 1 patch topical QDAY Qty: 30 0RF Rx Instructions: leave on most painful area for up to 12 hrs No Action amlodipine 2.5 mg tablet 2.5 mg 1XD hydrochlorothiazide 12.5 mg tablet 12.5 mg 1XD Referrals: Rhoda Ortiz MD [Primary Care Provider] - Patient/Caregiver Discharge Instructions Print Language: Bengali Quality Discharge Quality Measures VTE prophylaxis (SCD)
--- NOTE | 2024-02-12 15:35 | ESCONSULT_ITS ---
RE: KENNETH LUCIO : 1945 DATE OF CONSULTATION: 02/11/2024 CHIEF COMPLAINT: The patient fell and has had a number of falls recently. He has had these episodes just recently including one at a [place] in [place]. That fall required EMT and fire department to get him up. There is a history of possible lung tumor. The concern that precipitated this consult is the fact that he might have a lytic lesion in the femoral neck, right hip. He is not complaining of any pain in his right hip. Past medical history: Includes hypertension, COPD with asthma, presently smoking. He also has GERD, cataracts, gastric bypass surgery, and vasectomy. Physical examination: GENERAL: Shows a well-developed, well-nourished male who is alert, oriented, and speaks very clearly. EXTREMITIES: He moves both upper extremities including shoulders, elbows, wrists, hands, and fingers. No chest or abdominal discomfort. He is able to straight leg raise both right and left hips without pain in either the right or left hip. No anterior groin pain. No complaints of pain about his knees other than a little bit of pain in his right knee. Active flexion and extension of feet noted. DIAGNOSTIC DATA: X-rays show possible lytic lesion in femoral neck. It also looks like he may have lytic lesion in the distal femur. Lung lesion being followed. He also has a right frontal lobe lesion and was seen by Dr. Parrish. There were also fractures of the right 4th and 5th ribs, age unknown, multiple pulmonary nodules. He states that he has been trying to get in to see a urologist. He does have difficulty urinating. LABORATORY DATA: Admission white count 7,100 with a hemoglobin of 11.4. Electrolytes within normal limits with a creatinine of 0.8. RECOMMENDATIONS: We will get an MRI scan of his pelvis. DT: 19:49:52 TT: 00:59:00 Ref: [id number] - TID: [id number]
--- NOTE | 2024-02-12 16:14 | PC.PT ---
PT eval withheld today. Waiting for further ortho recommendations from Dr. Khan regarding WB status of the patient.
--- NOTE | 2024-02-12 16:42 | PC.NURSE ---
[facility] called and has accepted patient for the transfer bed is available transfer will happen sometime emma
--- NOTE | 2024-02-12 18:29 | PC.NURSE ---
Notified patient took tele monitor off and does not want to wear it anymore. Patient going to transfer to a higher level of care [facility]. He is dressed and ready to go.
--- NOTE | 2024-02-12 18:34 | PC.NURSE ---
Called Tele monitor and notified her I called and notified Dr. Duarte and he is going to down grade patient to med surge. Waiting for orders to be put in. Patient is refusing tele box.
--- NOTE | 2024-02-12 19:30 | PC.NURSE ---
Report given to receiving hospital and ambulance personal. All belonging are accounted for and patient is being transferred to another facility in [place] via stretcher. Patient was able to ambulate from bed to rney and is showing no signs of distress. Patient's family is at bedside at time of ambulance personals arrival.
--- NOTE | 2024-02-12 21:09 | ESPR_ITS ---
Documentation for date of: 02/12/24 Subjective Subjective Interval history: Mr. Ayala was seen in [facility] today without any new symptoms. Denies any headache or dizziness. Radiology decided not to do the biopsy of the lung mass because of risks involved including pneumothorax the point of needing chest tube placement for a long period of time. Exam - Neurology Vital Signs Temp Pulse Resp BP Pulse Ox O2 Del Method O2 Flow Rate 98.0 F 67 18 122/61 96 Room Air 1 02/12/24 16:00 02/12/24 16:00 02/12/24 16:00 02/12/24 16:00 02/12/24 16:00 02/12/24 16:00 02/12/24 04:00 Narrative Exam GENERAL APPEARANCE: Well hydrated, well-nourished in no acute distress. HEENT: Normocephalic, atraumatic, extraocular movements intact. Pupils: Equal reacting to light and accommodation NECK: Supple, no JVD or bruits. CARDIOVASULAR: Heart: S1, S2 heard, regular without S3-S4 or murmur no rubs or gallops. LUNGS/CHEST: Clear to auscultation bilaterally. No rails, rhonchi, or wheezing. Normal inspection. ABDOMEN: Soft, nontender, with normal bowel sounds. No pulsatile masses. No rebound, rigidity, or guarding. Normal inspection and palpation. EXTREMITIES: Normal inspection and palpation. No edema, clubbing or cyanosis. SKIN: Warm and dry without rashes. Normal inspection. MUSCULOSKELETAL: No cervical, thoracic, lumbar or midline bony tenderness. Normal inspection. NEURO: Alert, awake and oriented x3. Cranial nerves: II through XII grossly intact. Speech and language: Normal with no dysarthria or dysphasia. Motor system: Tone and bulk: Normal: Strength: 5 out of 5 in all 4 extremities; No pronator drift noted. Deep tendon reflexes: 2+ bilaterally symmetrical. Plantar reflex: Downgoing bilaterally. Sensory system: Intact to all modalities of sensation bilaterally. Coordination: Intact to grqbir-ijea-daanj and fhsg-pjyd-pgzq test bilaterally. No ataxia, no dysmetria, or dysdiadochokinesia noted. No intention tremors noted. Gait: Not tested. No signs of meningeal irritation noted. PSYCHIATRIC: Normal mood and affect. Objective Labs 02/12/24 04:40 02/12/24 04:40 Labs: Laboratory Results - last 24 hr 02/10/24 02/12/24 13:41 04:40 WBC 15.5 H D RBC 3.90 L Hgb 12.9 L Hct 36.2 L MCV 93 MCH 33.1 MCHC 35.6 RDW Std Deviation 43.7 Plt Count 222 Neut % (Auto) 88 H Lymph % (Auto) 5 L [place] % (Auto) 7 Eos % (Auto) 0 Baso % (Auto) 0 Neut # (Auto) 13.6 H Lymph # (Auto) 0.8 L [place] # (Auto) 1.1 H Eos # (Auto) 0.0 Baso # (Auto) 0.0 Immature Gran # (Auto) 0.06 H Absolute Nucleated RBC 0.00 Immature Gran % 0 Nucleated RBC % 0 Sodium 137 Potassium 3.8 Chloride 103 Carbon Dioxide 25.8 Anion Gap 8 BUN 21 Creatinine 0.9 Estim Creat Clear Calc 76.4 eGFR > 60 BUN/Creatinine Ratio 23 H Glucose 120 H Calculated Osmolality 277 Calcium 9.5 Corrected Calcium 9.5 Magnesium 2.0 Total Bilirubin 0.7 D AST 14 ALT 10 Alkaline Phosphatase 83 Total Protein 6.3 Albumin 4.0 Globulin 2.3 Albumin/Globulin Ratio 1.7 Triglycerides 55 Cholesterol 148 LDL Cholesterol, Calc 63 HDL Cholesterol 74 H Cholesterol/HDL Ratio 2.0 L Vitamin B12 421 25-OH Vitamin D Total 25.5 Assessment & Plan Assessment and plan (1) Brain mass: Status: Acute Assessment and plan: MRI brain showed contrast-enhancing lesions in the right frontal lobe with the pressure effect: likely metastasis, most likely from a primary lung mass Continue to monitor for any seizures. Continue with the Decadron 4 mg every 8 and Keppra for prophylaxis. Patient is going to be transferred to [facility] neurosurgery department for biopsy of the brain mass to confirm the diagnosis even though it is most likely metastasis from a lung mass. (2) Lung mass: Status: Acute Assessment and plan: Recommend tissue biopsy to confirm the diagnosis of primary, but the nodules are too small to biopsy there is risk involved (3) Fall: Status: Chronic Assessment and plan: With fracture could have been a manifestation of bone metastasis (4) Nicotine dependence with current use: Status: Chronic Assessment and plan: Advised smoking cessation
[2024-02-16 06:51] LABS: Vitamin D,1,25 (OH)2,Total 48 pg/mL (18-72); Vitamin D2, 1,25 (OH)2 <8 pg/mL; Vitamin D3, 1,25 (OH)2 48 pg/mL
== END 2024-02-12 19:30 | disposition other institution (70) | DRG 206 ==
LOC: SERX 10:46 → SERHOLD 12:57 → S3SX 14:13
PROVIDERS: Psychiatry & Neurology Neurology; Admitting Provider Internal Medicine; Emergency Provider Emergency Medicine; PCP Internal Medicine; Visit Provider Internal Medicine
DX: S22.31XA Fracture of one rib, right side, initial encounter for closed fracture (principal); C79.31 Secondary malignant neoplasm of brain; I10 Essential (primary) hypertension; K21.9 Gastro-esophageal reflux disease without esophagitis; N40.0 Benign prostatic hyperplasia without lower urinary tract symptoms; Z98.84 Bariatric surgery status; F17.210 Nicotine dependence, cigarettes, uncomplicated; W18.30XA Fall on same level, unspecified, initial encounter; R91.1 Solitary pulmonary nodule; G93.9 Disorder of brain, unspecified; M89.551 Osteolysis, right thigh; J44.89 Other specified chronic obstructive pulmonary disease
CPT/HCPCS: 36415; 70450; 70552; 71250; 72125; 73552; 73700; 74176; 80048; 80053; 80061; 80307; 81001; 82306; 82607; 82652; 83036; 83735; 84100; 84443; 85025; 85610; 85730; 93005; 93225; 94664; 94762; 96372; 99285; A9579; J1643; J8540; A9270; J1644

== ENCOUNTER 2024-02-23 17:20 | Inpatient (IN) | payer MEDICARE, BC, SELFPAY ==
[2024-02-23 18:05] VITALS: BP 118/62; PULSE 61; RESP 20; TEMP 36.5; O2SAT 92; BMI 21.7
--- NOTE | 2024-02-23 18:13 | PD.HHHP ---
Documentation for date of: 02/23/24 HPI - Hospitalist History of Present Illness History of present illness: Patient is a 78-year-old male with past medical history of BPH, COPD, asthma, hypertension, lung mass, gastric bypass, chronic tobacco use who was brought to our ED after sustaining a ground-level fall. Patient had endorsed progressively worsening disequilibrium the past 6 months prior to presentation. He had also been found to have a right upper lobe pulmonary nodule outpatient. Upon evaluation in our ED, a brain MRI was done showing 2 enhancing right frontal lobe lesions consistent with cerebral metastatic disease. The 10 mm spiculated pulmonary nodule in the right upper lobe was also found to be on the services ICHD patient was found to have a small age-indeterminate is a displaced fractures of the right fourth and fifth ribs on CT chest, abdomen and pelvis, as well as multiple pulmonary nodules. Here in our hospital, CT of the femur was done showing osteolytic lesions of the right femoral neck. No acute fractures were found. Biopsy of lung mass was deferred due to concern for risk of pneumothorax. Patient was subsequently transferred to [facility] to undergo neurosurgical evaluation at [facility]. Patient has now returned to our facility status post right frontal craniotomy for tumor resection on 02/16/2024. Intraoperative pathology revealed high-grade glioma, pending final pathology. Patient currently doing well and states that he was working with physical therapy at [facility] and was able to walk a front wheel walker. He reports some pain of his craniotomy site. Otherwise, patient denies any visual changes, nausea, vomiting, dysuria, abdominal pain, chest pain, shortness of breath, fevers, chills, urinary frequency, diarrhea. Last bowel movement was today. Son and are at bedside at time of my evaluation. Past medical history: BPH, COPD, asthma, hypertension, lung mass, obesity status post gastric bypass, chronic tobacco use Past surgical history: gastric bypass and right frontal craniotomy Social history: Social alcohol use, chronic tobacco use Review of Systems Review of Systems Systems Reviewed: All systems reviewed, normal except as documented Meds Home Medications and Allergies Home Medications ?Medication ?Instructions ?Recorded ?Confirmed ?Type amlodipine 2.5 mg tablet 2.5 mg 1XD 02/10/24 02/10/24 History hydrochlorothiazide 12.5 mg tablet 12.5 mg 1XD 02/10/24 02/10/24 History Allergies Allergy/AdvReac Type Severity Reaction Status Date / Time shellfish derived Allergy Severe Anaphylaxis Unverified 02/12/24 08:42 povidone-iodine Allergy Intermediate Hives Verified 02/10/24 01:18 ampicillin Allergy Anaphylaxis Verified 02/10/24 01:18 soap [From Betadine] Allergy Rash Verified 02/10/24 01:18 Exam Vital Signs Temp Pulse Resp BP Pulse Ox O2 Del Method 97.7 F 61 20 118/62 92 L Room Air 02/23/24 18:05 02/23/24 18:05 02/23/24 18:05 02/23/24 18:05 02/23/24 18:05 02/23/24 18:05 Narrative Gen: No acute distress, thin HEENT: [place] over right frontal region are clean, dry and intact. PERRLOU, Sclera anicteric, conjunctiva noninjected, oral mucosa moist without erythema Neck: Supple, full range of motion, no LAD CV: RRR, no murmurs, rubs or gallops Resp: CTAB/L, no wheezing, rhonchi or rales GI: abdomen soft, bowel sounds noted, no tenderness to palpation, no guarding or rebound tenderness, no organomegaly Skin: clean, dry, no rashes, lesions or ecchymosis Ext: no clubbing, cyanosis, or edema Neuro: A&O x3, CN II- XII intact b/l, no focal neurological deficits Results - Hospitalist Labs Labs: Labs obtained this AM from OSH 02/23/24 @0531 WBC 5.9 Hgb 11.4 Hct 35.2 Plt 164 Na 136 K 4.6 Cl 10 CO2 19 BUN 48 Cr 0.94 eGFR 83 Ca 8.6 Mg 2.0 Assessment & Plan -Hospitalist Patient Synopsis High grade glioma, 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 Adán Newell, neurosurgery. Seen and evaluated by Neuro-oncology as well - patient and family were made aware of findings over zoom per documentation during which prognosis had been discussed - final path pending - case had been reviewed at tumorboard on 02/19/24 with some stains pending, but dx favoring glioblastoma - post/op MRI was done on 02/18/24 showing gross total resection of the enhancing tumor in right superior frontal gyrus - Referrals made for local oncologists including Dr Anne and Dr Michele to establish care - Continue with kekellyra for seizure prophylaxis for 30 days until 03/17/24. Seizure precautions - Continue decadron taper as recommended by neurosurgery. Decadron 2mg PO BID (02/22-02/14) --> Decadron 1mg PO BID (02/25-02/27) --> Decadron 1mg PO qAM (02/28- 03/01) --> Decadron 0.5mg PO qAM (03/02-03/03) - Pain control PRN - PT ordered, patient will need SNF/ acute rehab placement due to deconditioning. Will involve social media marketing manager in AM Lung nodules - infectious workup done at [facility] revealed negative coccidiomycosis AB, histopalsama negative, coccidiodes immitis negative, beta-D glucan negative, galactomannan negative, AFB negative; Quantiferon otherwise pending - Likely neoplastic, rather than infectious, due to spiculated structure - will need outpatient PET scan - refer to outpatient pulmonology Nonsustained VT - patient was noted to have NSVT at outside hospital, as well as short run on admission. - will start on metoprolol 12.5mg PO daily and hold home amlodipine - electrolytes WNL K+ 4.6, Mg 2.0 HTN - continue with lisinopril 20mg PO daily - started on beta jhony due to NSVT, will hold amlodipine at this time Chronic tobacco use - nicotine patch 21mg topical daily COPD/Asthma - not in acute exacerbation - LABA/ ICS ordered - albuterol PRN BPH - continue with flomax DVT ppx: heparin 5000 units SC BID CODE status: full Diet: regular Dispo: will need SNF/ acute rehab placement. PT ordered. Quality Measures Quality Measures VTE prophylaxis (heparin) Advance care planning discussed with:: patient, spouse and child
[2024-02-23 18:30] VITALS: PULSE 65
[2024-02-23 20:00] VITALS: BP 143/78; PULSE 70; PULSE 80; RESP 12; TEMP 36.2; O2SAT 92
[2024-02-23] MEDS: dexAMETHasone 4 MG TABLET PO (20:12)
[2024-02-23] MEDS: levETIRAcetam 250 MG TABLET 500 MG PO (20:12)
[2024-02-23] MEDS: HEPARIN SOD INJ 5000 UNIT/ML VIAL SC (20:13)
[2024-02-23 23:09] VITALS: PULSE 66; RESP 18; O2SAT 95
[2024-02-24] VITALS (9 sets, daily range): BP systolic 102–136; BP diastolic 62–76; PULSE 59–95; RESP 12–25; TEMP 36.1–36.6; O2SAT 92–95; BMI 21.7
[2024-02-24 06:49] LABS: Basophils % (Auto) 0 % (0-2.5); Eosinophils % (Auto) 0 % (0-10); Hemoglobin 11.5 g/dL (13.5-16.0); Immature Granulocytes % (Auto) 1 % (0-0); Immature Granulocytes Auto 0.04 Thou/mm3 (0.00-0.00); Lymphocytes # (Auto) 1.2 Thou/mm3 (1.0-4.8); Lymphocytes % (Auto) 15 % (10-50); Mean Corpuscular HGB Conc 34.8 g/dl (31.0-37.0); Mean Corpuscular Hemoglobin 33.3 pg (25.0-35.0); Mean Corpuscular Volume 96 fL (80-100); Monocytes # (Auto) 0.5 Thou/mm3 (0.0-0.8); Monocytes % (Auto) 6 % (0-12); Neutrophils # (Auto) 6.3 Thou/mm3 (1.8-7.7); Neutrophils % (Auto) 79 % (37-80); Nucleated Red Blood Cell % 0 /100 WBC (0); Platelet Count 324 Thou/mm3 (140-440); RDW Standard Deviation 46.8 fL (35.1-43.9); Red Blood Count 3.45 Miln/mm3 (4.50-5.90)
[2024-02-24] MEDS: FLUTICASONE/SALMETEROL 100/50 14 DOSE INH 1 PUFF INH ×2 (07:03→19:16)
[2024-02-24 07:20] LABS: Anion Gap 6 (7-16); BUN/Creatinine Ratio 56 Ratio (12-20); Blood Urea Nitrogen 45 mg/dL (9-23); Carbon Dioxide 24.2 mMol/L (20.0-31.0); Chloride 106 mMol/L (98-107); Creatinine (Component) 0.8 mg/dL (0.6-1.3); Estimated Creatinine Clearance 78.1 mL/min (>60); Glucose 100 mg/dL (74-106); Magnesium 2.1 mg/dL (1.6-2.6); Osmolality,Calculated 283 (275-295); Phosphorous 3.8 mg/dL (2.4-5.1); Potassium 4.4 mMol/L (3.4-5.1); Sodium 136 mMol/L (136-145); eGFR > 60 See Note
[2024-02-24] MEDS: NICOTINE PATCH 21 MG/24 HR PATCH.TD24 TOP (08:32)
[2024-02-24] MEDS: TAMSULOSIN HCL 0.4 MG CAPSULE PO (08:33)
[2024-02-24] MEDS: levETIRAcetam 250 MG TABLET 500 MG PO ×2 (08:33→20:29)
[2024-02-24] MEDS: dexAMETHasone 1 MG TABLET 2 MG PO ×2 (08:33→20:29)
[2024-02-24] MEDS: PANTOPRAZOLE 40 MG TABLET PO (08:34)
[2024-02-24] MEDS: Lisinopril 20 MG TABLET PO (08:34)
[2024-02-24] MEDS: METOPROLOL SUCCINATE XL 25 MG TABCR 12.5 MG PO (08:34)
[2024-02-24] MEDS: HEPARIN SOD INJ 5000 UNIT/ML VIAL SC ×2 (08:35→20:29)
--- NOTE | 2024-02-24 11:27 | PC.SS ---
SORT MANAGER met with pt at bedside but pt stated he couldn't answer inital questions so pt asked SORT MANAGER to follow up with Anastasia Ayala [phone]. stated that before pt was admitted to the hospital pt was able to complete all his ADL's on his own. Pt stated that his is his medical decision maker. Pt is not diabetic or on dialyis. Pt's PCP is Dr. Cherry and see's a urologist but did not know the name. Pt's is asking that pt goes to [facility] for SNF.
--- NOTE | 2024-02-24 12:02 | PC.SS ---
INDUSTRIAL HYGIENE TECHNICIAN completed PASSAR and summited SNF referrals via [employer]
--- NOTE | 2024-02-24 13:55 | PC.PT ---
Patient had osteolytic lesion on his R femoral neck (Femur CT on 02/10/24). As per his HPI 02/23/24 that patient was ambulating in [facility]. This PT is not sure, if the the therapist in [facility] is aware about the osteolytic lesion on his R femoral neck. Because of the nature and location of the osteolytic lesion which is one of the common femoral fracture site, In my professional opinion, it will be best if the patient will be PWB with walker x shorter distance only, because of the increase risk of fracture, unless this will be clarified and the weightbearing status will increased by the medical team or the orthopedic MD.
--- NOTE | 2024-02-24 15:41 | ESPR_ITS ---
<Statement entered by Yonatan Palma MD - 02/24/24 20:14> Patient was seen and examined at the bedside. Patient's son was present at the bedside. Patient has history of resection s/p craniotomy for high-grade glioma, gastric bypass, BPH, COPD and he was recently received back for possible SNF placement. He is currently on Decadron tapering doses which has been continued during his hospital stay. Social work reported the patient has a new SNF placement and will wait for PT evaluation. Cardiology was consulted as patient had episodes of SVT overnight and amlodipine was discontinued and patient was started on metoprolol which packer inspector was agreeable. Will likely follow-up on cardiology recommendation and possible discharge tomorrow. All labs and orders were reviewed. I saw and examined the patient, and I agree with current management stated by Dr Clarita MD,PGY1. Plan of care was discussed with the attending physician and resident physician. Disclaimer: Despite multiple revisions, due to the dictation software being used, the document bellow may not be free of grammatical errors including phonetic/typographic errors. However, this does not deter from our commitment to providing health care in the patient's best interest in mind. Dr. Minerva MD, PGY 2 Documentation for date of: 02/24/24 Subjective Subjective Interval history: Patient is a 78 year old male with past medical history of HTN, chronic tobacco use, COPD, Asthma, BPH, gastric bypass who was admitted on 02/23/2024 for mechanical ground level fall. NO overnight events reported. Patient and patient's seem are agreable to SNF and would like to speak with social media marketing manager. Patient is understanding of condition and poor prognosis. Exam Vital Signs Temp Pulse Resp BP Pulse Ox O2 Del Method 97.6 F 68 25 H 110/62 95 Room Air 02/24/24 12:00 02/24/24 12:00 02/24/24 12:00 02/24/24 12:00 02/24/24 12:02/24/24 12:00 Narrative Exam General Appearance: Alert & Oriented X3, well-nourished male who is lying in bed in no acute distress HEENT: Skull symmetrical and atraumatic. Conjunctivae pale and moist. Pupils equal, round, reactive to light and accommodation (PERRL). External ear without lesion or discharge. Straight, nares patient, mucosa pink, no discharge. Cardio: Normal Rate and Rhythm with S1 and S2 heart sounds. Possible holosystolic murmur. . No bruits on carotid auscultation. No peripheral edema or cyanosis. Lungs: Symmetric with good expansion. Chest and back non-tender. Breath sounds vesicular without crackles, wheezing or rhonchi Abdomen: Non-tender, Non-distended, Normal Reactive Bowel Sounds Neuro: Alert, cooperative, oriented to person, place, and time. Speech clear. CN grossly intact. Upper motor strength 5/5 and Lower motor strength 5/5. Sensation intact. Objective Labs 02/25/24 04:39 02/25/24 04:39 Labs: Laboratory Results - last 24 hr 02/24/24 05:50 WBC 8.0 RBC 3.45 L Hgb 11.5 L Hct 33.0 L MCV 96 MCH 33.3 MCHC 34.8 RDW Std Deviation 46.8 H Plt Count 324 D Neut % (Auto) 79 Lymph % (Auto) 15 [place] % (Auto) 6 Eos % (Auto) 0 Baso % (Auto) 0 Neut # (Auto) 6.3 Lymph # (Auto) 1.2 [place] # (Auto) 0.5 Eos # (Auto) 0.0 Baso # (Auto) 0.0 Immature Gran # (Auto) 0.04 H Absolute Nucleated RBC 0.00 Immature Gran % 1 H Nucleated RBC % 0 Sodium 136 Potassium 4.4 Chloride 106 Carbon Dioxide 24.2 Anion Gap 6 L BUN 45 H Creatinine 0.8 Estim Creat Clear Calc 78.1 eGFR > 60 BUN/Creatinine Ratio 56 H Glucose 100 Calculated Osmolality 283 Calcium 9.0 Phosphorus 3.8 Magnesium 2.1 Quality Measures Quality Measures VTE prophylaxis (heparin) Advance care planning discussed with:: other Assessment & Plan Assessment Current Active Medications: Generic Name Dose Route Start Last Admin Trade Name Freq PRN Reason Stop Dose Admin Acetaminophen 650 mg 02/23/24 18:02 Acetaminophen 325 Mg Tablet PO 03/24/24 18:01 Q6H PRN Fever >101.5 and pain Protocol Albuterol 2 puff 02/23/24 18:10 Albuterol Inh 8 Gm INH 03/24/24 18:09 Q6H PRN SHORTNESS OF BREATH OR WHEEZE Dexamethasone 1 mg 02/26/24 09:00 Dexamethasone 1 Mg Tablet PO 02/28/24 21:01 BID [facility] Protocol Dexamethasone 1 mg 02/29/24 09:00 Dexamethasone 1 Mg Tablet PO 03/01/24 09:01 QDAY [facility] Protocol Dexamethasone 2 mg 02/24/24 09:00 02/24/24 08:33 Dexamethasone 1 Mg Tablet PO 02/25/24 21:01 2 mg BID [facility] Administration Dexamethasone 0.5 mg 03/02/24 09:00 Dexamethasone 1 Mg Tablet PO 04/03/24 08:59 QDAY [facility] Protocol Heparin Sodium (Porcine) 5,000 unit 02/24/24 09:00 02/24/24 08:35 Heparin Sod Inj 5000 Unit/Ml Vial SC 03/09/24 08:59 5,000 unit Q12HR [facility] Administration Levetiracetam 500 mg 02/23/24 21:00 02/24/24 08:33 Levetiracetam 250 Mg Tablet PO 03/24/24 20:59 500 mg BID [facility] Administration Lisinopril 20 mg 02/24/24 09:00 02/24/24 08:34 Lisinopril 20 Mg Tablet PO 03/25/24 08:59 20 mg QDAY [facility] Administration Metoprolol Succinate 12.5 mg 02/24/24 09:00 02/24/24 08:34 Metoprolol Succinate Xl 25 Mg Tabcr PO 03/25/24 08:59 12.5 mg QDAY [facility] Administration Nicotine 21 mg 02/24/24 09:00 02/24/24 08:32 Nicotine Patch 21 Mg/24 Hr Patch.Td24 TOP 03/25/24 08:59 21 mg QDAY [facility] Administration Ondansetron HCl 4 mg 02/23/24 18:28 Ondansetron Inj 2 Mg/Ml Inj 2 Ml IV 03/24/24 18:27 Q8HR PRN NAUSEA OR VOMITING Protocol Oxycodone HCl 2.5 mg 02/23/24 18:02 Oxycodone Hcl 5 Mg Ir Tab PO 02/28/24 18:01 Q6HR PRN PAIN SCALE 4-6 (Moderate Oxycodone HCl 5 mg 02/23/24 18:02 Oxycodone Hcl 5 Mg Ir Tab PO 02/28/24 18:01 Q6HR PRN PAIN SCALE 7-10 (Severe Pantoprazole Sodium 40 mg 02/24/24 09:00 02/24/24 08:34 Pantoprazole 40 Mg Tablet PO 03/25/24 08:59 40 mg QDAY [facility] Administration Fluticasone/Salmeterol 1 puff 02/23/24 19:30 02/24/24 07:03 Fluticasone/Salmeterol 100/50 14 Dose Inh INH 03/24/24 19:29 1 puff BIDRT [facility] Administration Tamsulosin HCl 0.4 mg 02/24/24 09:00 02/24/24 08:33 Tamsulosin Hcl 0.4 Mg Capsule PO 03/25/24 08:59 0.4 mg QDAY [facility] Administration Plan Patient is a 78 year old male with past medical history of HTN, chronic tobacco use, COPD, Asthma, BPH, gastric bypass who was admitted on 02/23/2024 for mechanical ground level fall. 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 Adán Newell, neurosurgery. Seen and evaluated by Neuro-oncology as well - patient and family were made aware of findings over zoom per documentation during which prognosis had been discussed - final path pending - case had been reviewed at [facility]board on 02/19/24 with some stains pending, but dx favoring glioblastoma - post/op MRI was done on 02/18/24 showing gross total resection of the enhancing tumor in right superior frontal gyrus - Referrals made for local oncologists including Dr Anne and Dr Michele to establish care - Continue with keppra for seizure prophylaxis for 30 days until 03/17/24. Seizure precautions - Continue decadron taper as recommended by neurosurgery. Decadron 2mg PO BID (02/22-02/14) --> Decadron 1mg PO BID (02/25-02/27) --> Decadron 1mg PO qAM (02/28- 03/01) --> Decadron 0.5mg PO qAM (03/02-03/03) - Pain control PRN -PT recs: PWB with walker X shorter distance only, increased risk of fracture -Social Service Referral #Lung nodules - infectious workup done at [facility] revealed negative coccidiomycosis AB, histopalsama negative, coccidiodes immitis negative, beta-D glucan negative, galactomannan negative, AFB negative; Plan: -Quantiferon otherwise pending - Likely neoplastic, rather than infectious, due to spiculated structure - will need outpatient PET scan - refer to outpatient pulmonology #[place] Rhythm Possible [place] rhtym given 60-100 beats per minutes an less likely secodnary to SVT as beats are not >100. Plan -NO EKG or Echo planned for now -Continue Meoprolol 12.5 mg PO Qday -HOlding Amlodipine currenlty -Consult Cardiology, Dr. Ward, appreciate recommendations #HTN - continue with lisinopril 20mg PO daily - started on beta jhony due to NSVT, will hold amlodipine at this time #Chronic tobacco use - nicotine patch 21mg topical daily #COPD/Asthma - not in acute exacerbation - LABA/ ICS ordered - albuterol PRN BPH - continue home with flomax Health Maintenance: Disp: Pt is currently admitted to floors for further management of mechanical fall, awaiting cariology consult on new telemtry findings. FEN: DVT: on subQ heparin Code: Full Code - The patient's plan was discussed with attending Dr. Schmidt and senior residents Dr. Minerva Otto MD PGY1 Internal Medicine Attending Provider Attestation/Addendum I, Gabriela Schmidt, DO, attest that I was physically present for the morales portions of the service and evaluated the patient with the resident and I reviewed and discussed the case with the resident and agree with the resident's findings and plans of care as documented above Patient seen and evaluated this AM. Patient has no acute complaints and has been afebrile. Continue with steroid taper as recommended. Pending authorization for SNF placement. Patient continues to have frequent PVCs on tele monitoring. Will consult patient's packer inspector for further evaluation. Will repeat EKG. Patient otherwise denies any active chest pain.
[2024-02-25] VITALS (9 sets, daily range): BP systolic 95–114; BP diastolic 53–68; PULSE 56–82; RESP 18–25; TEMP 36.1–36.7; O2SAT 92–95; BMI 22.5
[2024-02-25 05:34] LABS: Basophils % (Auto) 0 % (0-2.5); Eosinophils % (Auto) 0 % (0-10); Hematocrit 32.6 % (41.0-53.0); Hemoglobin 11.3 g/dL (13.5-16.0); Immature Granulocytes % (Auto) 0 % (0-0); Immature Granulocytes Auto 0.03 Thou/mm3 (0.00-0.00); Lymphocytes # (Auto) 1.8 Thou/mm3 (1.0-4.8); Lymphocytes % (Auto) 16 % (10-50); Mean Corpuscular HGB Conc 34.7 g/dl (31.0-37.0); Mean Corpuscular Hemoglobin 32.7 pg (25.0-35.0); Mean Corpuscular Volume 94 fL (80-100); Monocytes % (Auto) 9 % (0-12); Neutrophils # (Auto) 8.1 Thou/mm3 (1.8-7.7); Neutrophils % (Auto) 74 % (37-80); Nucleated Red Blood Cell % 0 /100 WBC (0); Platelet Count 233 Thou/mm3 (140-440); RDW Standard Deviation 45.8 fL (35.1-43.9); Red Blood Count 3.46 Miln/mm3 (4.50-5.90); White Blood Count 10.9 Thou/mm3 (3.8-10.6)
[2024-02-25 05:53] LABS: Anion Gap 6 (7-16); BUN/Creatinine Ratio 46 Ratio (12-20); Blood Urea Nitrogen 37 mg/dL (9-23); Calcium 8.9 mg/dL (8.3-10.6); Carbon Dioxide 24.9 mMol/L (20.0-31.0); Chloride 106 mMol/L (98-107); Creatinine (Component) 0.8 mg/dL (0.6-1.3); Estimated Creatinine Clearance 78.1 mL/min (>60); Glucose 96 mg/dL (74-106); Magnesium 2.1 mg/dL (1.6-2.6); Osmolality,Calculated 282 (275-295); Phosphorous 3.5 mg/dL (2.4-5.1); Potassium 4.3 mMol/L (3.4-5.1); Sodium 137 mMol/L (136-145); eGFR > 60 See Note
[2024-02-25] MEDS: FLUTICASONE/SALMETEROL 100/50 14 DOSE INH 1 PUFF INH ×2 (07:21→19:18)
[2024-02-25] MEDS: HEPARIN SOD INJ 5000 UNIT/ML VIAL SC ×2 (08:58→20:04)
[2024-02-25] MEDS: NICOTINE PATCH 21 MG/24 HR PATCH.TD24 TOP (08:58)
[2024-02-25] MEDS: Lisinopril 20 MG TABLET PO (08:59)
[2024-02-25] MEDS: METOPROLOL SUCCINATE XL 25 MG TABCR 12.5 MG PO (08:59)
[2024-02-25] MEDS: dexAMETHasone 1 MG TABLET 2 MG PO ×2 (09:00→20:04)
[2024-02-25] MEDS: PANTOPRAZOLE 40 MG TABLET PO (09:00)
[2024-02-25] MEDS: levETIRAcetam 250 MG TABLET 500 MG PO ×2 (09:00→20:04)
[2024-02-25] MEDS: TAMSULOSIN HCL 0.4 MG CAPSULE PO (09:01)
--- NOTE | 2024-02-25 09:30 | PC.SS ---
MARKETING OPERATIONS COORDINATOR summited updated clinicals via [employer]
--- NOTE | 2024-02-25 10:06 | PC.SS ---
PLANT SCIENTIST followed up with Dr. Schmidt regarding questions about cancer treatment that SNF's were asking, Dr. Schmidt stated that pt is not seeking cancer treatment at SNF's but rehab from fall. PLANT SCIENTIST to follow up with SNF's via [facility].
--- NOTE | 2024-02-25 10:12 | PC.SS ---
PACKAGE SEALER MACHINE called pt's regarding update on SNF placements and informed that [facility] has not accepted pt and gave pt's options from facilities that have accepted pt and stated that it does not matter where pt goes but she does not want him to go to [facility]. PACKAGE SEALER MACHINE to follow up with Sheeba from [facility].
--- NOTE | 2024-02-25 12:32 | PC.SS ---
Pt will be going to [facility] and Carla from [facility] is aware, pt will be going tmrw due to pending 3 midnight stay, BRAND COORDINATOR followed up with pt's on d/c plan and she agreed on d/c plan.
--- NOTE | 2024-02-25 13:15 | PD.RESPRO ---
Documentation for date of: 02/25/24 Subjective Subjective Interval history: Patient was seen and examined at the bedside. Patient reported that he feels better and was eating his breakfast. Patient was having productive cough more related to upper respiratory tract. Consulted Dr. Anne, oncologist who would like to see the patient tomorrow morning. Dr. Ward, perfume and toilet water maker stated that the patient does not appear to have accelerated junctional rhythm and does not recommend to continue beta-jhony. Therefore beta-jhony was discontinued. PT recommended SNF and they found a place however patient's does not want to proceed with removal of the referral they will find in the place. Home medications for discharge were appropriate. Holding parameters placed from blood pressure medications. Discontinued metoprolol per cardiology recommendation and holding parameters for antihypertensive lisinopril due to soft blood pressure. Labs showed stable hemoglobin. All labs and orders were reviewed. Exam Vital Signs Temp Pulse Resp BP Pulse Ox O2 Del Method O2 Flow Rate 97.8 F 56 L 25 H 98/53 L 95 High Flow Nasal Cannula 4 02/25/24 12:00 02/25/24 12:00 02/25/24 12:00 02/25/24 12:02/25/24 12:00 02/25/24 12:00 02/25/24 12:00 Narrative Exam Gen: Patient is AO x 2 resting comfortably on the bed. Saturating well on room air. HEENT: Craniotomy scar pepito with sutures on the frontal part of cranium, LON, EOMI, MMM, no JVD CVS: Normal S1, S2. RRR. No MRG Resp: Bilateral coarse breath with mild crackles heard on auscultation Abd: Soft, non-tender, non-distended abdomen. BS+ MSK: Moves extremities x4, no edema or rash noted Neuro: shredding specialist grossly normal. No focal deficits noted. Psych: Appropriate mood and affect Objective Labs 02/25/24 04:39 02/25/24 04:39 Labs: Laboratory Results - last 24 hr 02/25/24 04:39 WBC 10.9 H RBC 3.46 L Hgb 11.3 L Hct 32.6 L MCV 94 MCH 32.7 MCHC 34.7 RDW Std Deviation 45.8 H Plt Count 233 D Neut % (Auto) 74 Lymph % (Auto) 16 Mcintosh % (Auto) 9 Eos % (Auto) 0 Baso % (Auto) 0 Neut # (Auto) 8.1 H Lymph # (Auto) 1.8 Mcintosh # (Auto) 1.0 H Eos # (Auto) 0.0 Baso # (Auto) 0.0 Immature Gran # (Auto) 0.03 H Absolute Nucleated RBC 0.00 Immature Gran % 0 Nucleated RBC % 0 Sodium 137 Potassium 4.3 Chloride 106 Carbon Dioxide 24.9 Anion Gap 6 L BUN 37 H Creatinine 0.8 Estim Creat Clear Calc 78.1 eGFR > 60 BUN/Creatinine Ratio 46 H Glucose 96 Calculated Osmolality 282 Calcium 8.9 Phosphorus 3.5 Magnesium 2.1 Quality Measures Quality Measures VTE prophylaxis (heparin) Advance care planning discussed with:: spouse Assessment & Plan Assessment Current Active Medications: Generic Name Dose Route Start Last Admin Trade Name Freq PRN Reason Stop Dose Admin Acetaminophen 650 mg 02/23/24 18:02 Acetaminophen 325 Mg Tablet PO 03/24/24 18:01 Q6H PRN Fever >101.5 and pain Protocol Albuterol 2 puff 02/23/24 18:10 Albuterol Inh 8 Gm INH 03/24/24 18:09 Q6H PRN SHORTNESS OF BREATH OR WHEEZE Dexamethasone 1 mg 02/26/24 09:00 Dexamethasone 1 Mg Tablet PO 02/28/24 21:01 BID [facility] Protocol Dexamethasone 1 mg 02/29/24 09:00 Dexamethasone 1 Mg Tablet PO 03/01/24 09:01 QDAY [facility] Protocol Dexamethasone 2 mg 02/24/24 09:00 02/25/24 09:00 Dexamethasone 1 Mg Tablet PO 02/25/24 21:01 2 mg BID [facility] Administration Dexamethasone 0.5 mg 03/02/24 09:00 Dexamethasone 1 Mg Tablet PO 04/03/24 08:59 QDAY [facility] Protocol Heparin Sodium (Porcine) 5,000 unit 02/24/24 09:00 02/25/24 08:58 Heparin Sod Inj 5000 Unit/Ml Vial SC 03/09/24 08:59 5,000 unit Q12HR [facility] Administration Levetiracetam 500 mg 02/23/24 21:00 02/25/24 09:00 Levetiracetam 250 Mg Tablet PO 03/24/24 20:59 500 mg BID [facility] Administration Lisinopril 20 mg 02/24/24 09:00 02/25/24 08:59 Lisinopril 20 Mg Tablet PO 03/25/24 08:59 20 mg QDAY [facility] Administration Metoprolol Succinate 12.5 mg 02/24/24 09:00 02/25/24 08:59 Metoprolol Succinate Xl 25 Mg Tabcr PO 03/25/24 08:59 12.5 mg QDAY [facility] Administration Nicotine 21 mg 02/24/24 09:00 02/25/24 08:58 Nicotine Patch 21 Mg/24 Hr Patch.Td24 TOP 03/25/24 08:59 21 mg QDAY [facility] Administration Ondansetron HCl 4 mg 02/23/24 18:28 Ondansetron Inj 2 Mg/Ml Inj 2 Ml IV 03/24/24 18:27 Q8HR PRN NAUSEA OR VOMITING Protocol Oxycodone HCl 2.5 mg 02/23/24 18:02 Oxycodone Hcl 5 Mg Ir Tab PO 02/28/24 18:01 Q6HR PRN PAIN SCALE 4-6 (Moderate Oxycodone HCl 5 mg 02/23/24 18:02 Oxycodone Hcl 5 Mg Ir Tab PO 02/28/24 18:01 Q6HR PRN PAIN SCALE 7-10 (Severe Pantoprazole Sodium 40 mg 02/24/24 09:00 02/25/24 09:00 Pantoprazole 40 Mg Tablet PO 03/25/24 08:59 40 mg QDAY [facility] Administration Fluticasone/Salmeterol 1 puff 02/23/24 19:30 02/25/24 07:21 Fluticasone/Salmeterol 100/50 14 Dose Inh INH 03/24/24 19:29 1 puff BIDRT [facility] Administration Tamsulosin HCl 0.4 mg 02/24/24 09:00 02/25/24 09:01 Tamsulosin Hcl 0.4 Mg Capsule PO 03/25/24 08:59 0.4 mg QDAY [facility] Administration Plan This patient is a 78 year old male with past medical history of HTN, chronic tobacco use, COPD, Asthma, BPH, gastric bypass who was admitted on 02/23/2024 for mechanical ground level fall. Currently awaiting SNF placement. Awaiting oncologist to give further recommendations. 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 Adán Newell, neurosurgery. Seen and evaluated by Neuro-oncology as well - patient and family were made aware of findings over zoom per documentation during which prognosis had been discussed - final path pending - case had been reviewed at [facility] on 02/19/24 with some stains pending, but dx favoring glioblastoma - post/op MRI was done on 02/18/24 showing gross total resection of the enhancing tumor in right superior frontal gyrus - Referrals made for local oncologists including Dr Anne and Dr Michele to establish care Plan: -Consulted oncologist, Dr. Anne and appreciate recommendations - Continue with keppra for seizure prophylaxis for 30 days until 03/17/24. Seizure precautions - Continue decadron taper as recommended by neurosurgery. Decadron 2mg PO BID (02/22-02/14) --> Decadron 1mg PO BID (02/25-02/27) --> Decadron 1mg PO qAM (02/28- 03/01) --> Decadron 0.5mg PO qAM (03/02-03/03) - Pain control PRN -PT recs: Awaiting SNF placement as per patient's they do not want to take patient to [facility] finding a new place. PWB with walker X shorter distance only, increased risk of fracture -Social Service Referral #Lung nodules - infectious workup done at [facility] revealed negative coccidiomycosis AB, histopalsama negative, coccidiodes immitis negative, beta-D glucan negative, galactomannan negative, AFB negative; Plan: -Appreciate oncology's recommendation -Quantiferon otherwise pending - Likely neoplastic, rather than infectious, due to spiculated structure - will need outpatient PET scan - refer to outpatient pulmonology #Accelerated Junction Rhythm ,Resolved Possible Accelerated Junction rhtym given 60-100 beats per minutes an less likely secodnary to SVT as beats are not >100. Plan -Discontinued metoprolol per cardiology recs -NO EKG or Echo planned for now -Consult Cardiology, Dr. Ward, appreciate recommendations #HTN ?Blood pressure have been on softer side. Plan: -Hold blood pressure medications if SBP below 100 and DBP below 60 mmHg - continue with lisinopril 20mg PO daily -Continue amlodipine 2.5 once daily if blood pressure remains stable #Chronic tobacco use - nicotine patch 21mg topical daily #COPD/Asthma - not in acute exacerbation - LABA/ ICS ordered - albuterol PRN #BPH - continue home with flomax Health Maintenance: FEN: Regular diet DVT: on subQ heparin Code: Full Code Disp: Pt is currently admitted to floors for further management of mechanical fall, awaiting oncology recommendations. DC'd metoprolol per cardio recs. Pending new SNF placement. - The patient's plan was discussed with attending Dr. Brayan Palma MD, PGY 2 Attending Provider Attestation/Addendum I, Gabriela Schmidt, DO, attest that I was physically present for the morales portions of the service and evaluated the patient with the resident and I reviewed and discussed the case with the resident and agree with the resident's findings and plans of care as documented above Patient seen and evaluated this a.m. No acute events overnight. Patient has no active complaints. is at bedside. No need for beta-jhony per cardiology. Will discontinue metoprolol at this time as patient's heart rate and blood pressure are borderline low?normal. According to physical therapy note, unclear if patient needs to be partial weightbearing given osteolytic lesion found on the right femur which is the most common location for fracture. Case was discussed with Ortho, recommends pelvis MRI. Will obtain MRI to further assess extent of lesion and ultimately weightbearing capacity. Patient had vocalized that he does not want any radiation. Oncology will see patient tomorrow to further discuss prognosis and treatment plan. Patient likely to be discharged in the next 24 to 48 hours to retirement facility.
--- NOTE | 2024-02-25 13:47 | PC.SS ---
FILL MANAGER met with pt and pat at bedside, FILL MANAGER explained to what a SNF was and what pt would be getting treated for while being at [facility], understood. pat is asking for FILL MANAGER to follow up with once pt gets an eta so can be at SNF during SNF assessment, FILL MANAGER will inform FILL MANAGER for the week in Handoff.
--- NOTE | 2024-02-25 21:25 | ESCONSULT_ITS ---
HPI Consult details Reason for consultation narrative: Recent resection of brain tumor use EFF glioma. History of present illness: Patient is a 78-year-old male who has had 1/2-year history of increasing falls. Workup at 0 he describes [facility] showed lytic lesion in right femoral neck possibly right distal femur. MRI scan of brain showed tumor. X-ray of lungs showed multiple nodules. Past Medical History Past Medical History NEUROLOGIC: Positive Migraine; Negative Neurological Disorders or Seizures CARDIAC: Positive Cardiac Disorders and Hypertension; Negative Congestive Heart Failure RESPIRATORY: Positive Chronic Obstructive Pulmonary Disease (COPD), Asthma and Pneumonia GASTROINTESTINAL: Positive Gastrointestinal Disorders (Gastric bypass) and Gastroesophageal Reflux Disease; Negative Ulcer or Hiatal Hernia GENITOURINARY: Positive Genitourinary Disorders, Kidney Stones and Benign Prostatic Hyperplasia; Negative Chronic Kidney Disease or Renal Disease MUSCULOSKELETAL: Positive Fractures; Negative Musculoskeletal Disorders ENT: Positive Cataracts ENDOCRINE: Negative Endocrine Disorders, Diabetes Mellitus Type 1 or Diabetes Mellitus Type 2 HEMATOLOGIC: Negative Blood Disorders, Anemia or Clotting Problems PSYCHO/SOCIAL: Negative Depression or Anxiety OTHER HISTORY: Positive Lung Cancer; Negative Hospitalization, Falls, Blood Transfusions, Anesthesia Reactions or Cancer Surgical History SURGICAL: Positive Gastric Bypass Surgery; Negative Vasectomy Social History SMOKING STATUS: Current every day smoker Meds Home Medications and Allergies Allergies Allergy/AdvReac Type Severity Reaction Status Date / Time shellfish derived Allergy Severe Anaphylaxis Unverified 02/12/24 08:42 povidone-iodine Allergy Intermediate Hives Verified 02/10/24 01:18 ampicillin Allergy Anaphylaxis Verified 02/10/24 01:18 soap [From Betadine] Allergy Rash Verified 02/10/24 01:18 Exam Vital Signs Temp Pulse Resp BP Pulse Ox O2 Del Method O2 Flow Rate 96.9 F 78 19 95/68 92 L Nasal Cannula 4 02/25/24 20:00 02/25/24 20:00 02/25/24 20:00 02/25/24 20:00 02/25/24 20:00 02/25/24 20:00 02/25/24 20:00 Pulse ox 92% on 4 L Narrative Exam Patient is sleeping nicely. I elected not to wake him up. Results - Ortho Labs 02/25/24 04:39 02/25/24 04:39 Labs: Short CBC 02/25/24 Range/Units 04:39 WBC 10.9 H (3.8-10.6) Thou/mm3 Hgb 11.3 L (13.5-16.0) g/dL Hct 32.6 L (41.0-53.0) % Plt Count 233 D (140-440) Thou/mm3 [facility] 02/25/24 04:39 Sodium 137 Potassium 4.3 Chloride 106 Carbon Dioxide 24.9 BUN 37 H Creatinine 0.8 Glucose 96 Calcium 8.9 White count 10,900 and. Hemoglobin 11.3 Assessment & Plan Additional Assessment Additional comments: Dr. Schmidt called me. We talked. There is a discussion of possible hospice. He is going to be transferred to SNF. I told her I wanted to get an MRI scan of his pelvis right femur. That will help determine his weightbearing status Plan MRI scan pelvis and right femur tomorrow
[2024-02-26] VITALS (10 sets, daily range): BP systolic 89–155; BP diastolic 54–63; PULSE 55–73; RESP 14–19; TEMP 36.3–36.6; O2SAT 93–99; BMI 22.4; BMI 11.0
[2024-02-26 05:58] LABS: Basophils % (Auto) 0 % (0-2.5); Eosinophils % (Auto) 0 % (0-10); Hematocrit 31.9 % (41.0-53.0); Hemoglobin 11.1 g/dL (13.5-16.0); Immature Granulocytes % (Auto) 0 % (0-0); Immature Granulocytes Auto 0.04 Thou/mm3 (0.00-0.00); Lymphocytes # (Auto) 1.4 Thou/mm3 (1.0-4.8); Lymphocytes % (Auto) 14 % (10-50); Mean Corpuscular HGB Conc 34.8 g/dl (31.0-37.0); Mean Corpuscular Hemoglobin 33.1 pg (25.0-35.0); Mean Corpuscular Volume 95 fL (80-100); Monocytes # (Auto) 0.8 Thou/mm3 (0.0-0.8); Monocytes % (Auto) 8 % (0-12); Neutrophils % (Auto) 78 % (37-80); Nucleated Red Blood Cell % 0 /100 WBC (0); Platelet Count 201 Thou/mm3 (140-440); Red Blood Count 3.35 Miln/mm3 (4.50-5.90); White Blood Count 10.3 Thou/mm3 (3.8-10.6)
[2024-02-26 06:21] LABS: Anion Gap 7 (7-16); BUN/Creatinine Ratio 47 Ratio (12-20); Blood Urea Nitrogen 33 mg/dL (9-23); Calcium 9.2 mg/dL (8.3-10.6); Carbon Dioxide 25.8 mMol/L (20.0-31.0); Chloride 105 mMol/L (98-107); Creatinine (Component) 0.7 mg/dL (0.6-1.3); Estimated Creatinine Clearance 92.6 mL/min (>60); Glucose 102 mg/dL (74-106); Osmolality,Calculated 282 (275-295); Potassium 4.1 mMol/L (3.4-5.1); Sodium 138 mMol/L (136-145); eGFR > 60 See Note
--- NOTE | 2024-02-26 08:14 | PD.ONCCONS ---
HPI Data of Consult Requesting Physician: Josue Camacho MD Primary Care Provider: Physician No Primary/Family Consult Narrative Reason for consult: Malignant glioma History of present illness: Patient is a 78-year-old gentleman initially seen 02/12/24 for suspected malignancy involving the right frontal lobe of brain. Patient was transferred to [facility] where craniotomy and tumor resection performed 02/16/2024. Pathology report not immediately available to us but this reportedly revealed high-grade glioma suspected glioblastoma. Poor prognosis even with postop adjuvant treatment reportedly was explained to family. Lung nodules biopsied reportedly revealed no obvious infectious etiology. Patient now readmitted to [facility]. Patient also seen cardiology for accelerated junctional rhythm and orthopedics for lytic lesion in right femoral neck. Patient reportedly will be transferred to [facility] soon. cc:: cc: Josue Camacho MD Past Medical History Past Medical History Comments PMH COMMENT: Hypertension cardiac arrhythmia COPD Meds Home Medications and Allergies Allergies Allergy/AdvReac Type Severity Reaction Status Date / Time shellfish derived Allergy Severe Anaphylaxis Unverified 02/12/24 08:42 povidone-iodine Allergy Intermediate Hives Verified 02/10/24 01:18 ampicillin Allergy Anaphylaxis Verified 02/10/24 01:18 soap [From Betadine] Allergy Rash Verified 02/10/24 01:18 Exam Vital Signs Temp Pulse Resp BP Pulse Ox O2 Del Method O2 Flow Rate 97.5 F 62 19 131/63 H 99 Nasal Cannula 4 02/26/24 04:00 02/26/24 04:00 02/26/24 04:00 02/26/24 04:00 02/26/24 04:00 02/26/24 04:00 02/26/24 04:00 Narrative Exam Largest comfortably but appears obtunded unable to answer questions. Results Labs 02/26/24 04:37 02/26/24 04:37 Labs: Short CBC 02/26/24 Range/Units 04:37 WBC 10.3 (3.8-10.6) Thou/mm3 Hgb 11.1 L (13.5-16.0) g/dL Hct 31.9 L (41.0-53.0) % Plt Count 201 D (140-440) Thou/mm3 BMP 02/26/24 04:37 Sodium 138 Potassium 4.1 Chloride 105 Carbon Dioxide 25.8 BUN 33 H Creatinine 0.7 Glucose 102 Calcium 9.2 Assessment and Plan Additional Assessment & Plan Additional Plan: 1. Malignant glioma right frontal brain region status post craniotomy and subtotal resection [facility] 02/16/2024. Likely glioblastoma grade 4 2. Has lung nodules biopsy and workup negative for various infectious types. May be a separate malignancy since malignant glioma rarely causes distant mets. 3. Poor prognosis considering the serious malignancy already known and with poor performance scale. 4. Told that I will watch her for the next 30 days or so while at SNF regarding his recovery from recent surgery to see if he would benefit from any adjuvant therapy. 5. Receiving supportive care for cardiopulmonary condition and being followed by Dr. Khan for his right femoral neck problem, the latter which could be malignancy related.
[2024-02-26] MEDS: HEPARIN SOD INJ 5000 UNIT/ML VIAL SC ×2 (09:42→22:15)
[2024-02-26] MEDS: levETIRAcetam 250 MG TABLET 500 MG PO ×2 (09:43→22:15)
[2024-02-26] MEDS: dexAMETHasone 1 MG TABLET PO (09:43)
[2024-02-26] MEDS: TAMSULOSIN HCL 0.4 MG CAPSULE PO (09:43)
[2024-02-26] MEDS: Lisinopril 20 MG TABLET PO (09:43)
[2024-02-26] MEDS: PANTOPRAZOLE 40 MG TABLET PO (09:44)
--- NOTE | 2024-02-26 10:24 | ESCONSULT_ITS ---
RE: KENNETH LUCIO : 1945 DATE OF CONSULTATION: 02/24/2024 CONSULTING PHYSICIAN AND HOSPITALIST: Gabriela Schmidt DO REASON FOR CONSULTATION: Evaluation of cardiac arrhythmia, idioventricular rhythm. HISTORY OF PRESENT ILLNESS: The patient is a 78-year-old male, very well known to me, has a longstanding history of multiple medical problems including history of brain carcinoma, right frontal lobe malignancy, glioblastoma multiforme. The patient had a craniotomy and tumor resection performed on 02/16/2024, suspected glioblastoma, high-grade poor prognosis. Postop adjuvant therapy was declined. The patient also has some lung nodules as well. The patient presented to the hospital with these symptoms. The patient was found to have accelerated idioventricular rhythm and hence coal grader consultation recommended. The patient was asymptomatic. I reviewed the cardiac rhythm strips, showed evidence of accelerated ventricular rhythm of no clinical significance. The patient is asymptomatic. Rate was only 80 beats per minute. The patient is known to me for several years. In 2020, three years ago, the patient had a coronary angiogram showing nonobstructive coronary artery, mild to moderate plaque around distal RCA, not significant, normal ejection fraction at that time. Since then, I have not followed him. PAST MEDICAL HISTORY: History of [id number] hypertension, recent diagnosis of glioblastoma multiforme, underwent resection. SOCIAL HISTORY: The patient does not smoke or drink alcohol beverages. FAMILY HISTORY: Noncontributory. PHYSICAL EXAMINATION: GENERAL: Pleasant well nourished male alert awake in no acute distress. VITAL SIGNS: Blood pressure 130/60, pulse rate 62 and regular, respirations 16, temperature normal. Head is atraumatic and normocephalic. HEENT: Eyes normal. ENT normal. NECK: Supple. No JVD. CHEST: Symmetrical. LUNGS: Decreased breath sounds. HEART: S1, S2, regular _. ABDOMEN: Thin and soft. EXTREMITIES: Mild edema. and RECTAL: Not performed. NEUROLOGIC: No focal deficits. The patient is able to communicate, though somewhat slow. IMPRESSION/ASSESSMENT: 1. Accelerated idioventricular rhythm, asymptomatic. No clinical significance. Normal blood pressure. 2. mild coronary artery disease, nonobstructive coronary artery disease by angiogram in 2020 3. History of recent diagnosis of brain tumor, glioblastoma multiforme, status post resection. RECOMMENDATIONS: Is to continue medical management. No need for any treatment. No need for beta blockers or any medications. The patient has idioventricular rhythm of no clinical significance. Only brief runs over 7 or 8 beats. For the most part, the patient has sinus rhythm with normal conduction and no specific therapy is recommended. I would like to thank for referring this patient for cardiovascular evaluation. If any further significant arrhythmia such as ventricular tachycardia, I would like to reevaluate. DT: 08:50:34 TT: 10:16:00 Ref: [id number] - TID: [id number] MTDD
--- NOTE | 2024-02-26 10:55 | PC.SS ---
Addendum entered by ANGIE Jacobs 02/26/24 15:29: Contacted Carla from [facility]- to update her with the patient's status. Carla informed that the patient can transfer to their facility under comfort measures. Carla to contact patient's to discuss services. Addendum entered by ANGIE Jacobs 02/26/24 15:19: Goals of care: met with patient and patient's Anastasia Ayala. Present was medical team Dr. Marx and Dr. Palma. Medical team provided patient's with a medical update. Discussion of comfort care and hospice was held. Patient's informed that she is unable to care for the patient at home. They patient's was provided with hospice resources and explained about comfort measures. Currently, the patient's has requested some time to speak to the family if they want to proceed with taking the patient home under hospice or transitioning to SNF with comfort measures. Original Note: SS Update: patient is pending MRI before discharge to SNF.
[2024-02-26] MEDS: FLUTICASONE/SALMETEROL 100/50 14 DOSE INH 1 PUFF INH (11:46)
--- NOTE | 2024-02-26 13:11 | XR_ITS ---
Examination: AP chest single view TECHNIQUE: Sitting portable AP chest single view Exam date and time: February 26, 2024 at 1414 hours Comparison April 16, 2022 INDICATIONS: Coughing today. FINDINGS: Normal heart size No pneumonia or pulmonary edema Midthoracic dextroscoliosis 15 degrees IMPRESSION: No pneumonia or pulmonary edema
--- NOTE | 2024-02-26 15:04 | ESPR_ITS ---
<Statement entered by Yonatan Palma MD - 02/26/24 15:41> Patient was seen and examined at the bedside in the morning. He answered that he is feeling fine however feels generalized weakness and mildly short of breath. Goals of care discussion was performed with patient's and she was given options regarding hospice at home, comfort care at hospital and comfort care measures at SNF. Patient did understand and asked for time to decide about it and wanted to speak to her son and daughter although she does not want to proceed with further testing anymore. She already spoke to Dr. Anne, oncologist and was well aware about patient's grade 4 glioblastoma. Will likely touch base with patient's son and come up with the decision possibly tomorrow. Discontinued MRI hip and pelvis as patient's did not want to proceed with any more invasive testing. Chest x-ray was negative. All labs and orders were reviewed. Goals of care discussion was performed in the presence of social welfare clerk Rosa, resident physician, Dr. Otto. I saw and examined the patient, and I agree with current management stated by Dr Clarita MD,PGY1. Plan of care was discussed with the attending physician and resident physician. Disclaimer: Despite multiple revisions, due to the dictation software being used, the document bellow may not be free of grammatical errors including phonetic/typographic errors. However, this does not deter from our commitment to providing health care in the patient's best interest in mind. Dr. Minerva MD, PGY 2 Documentation for date of: 02/26/24 Subjective Subjective Interval history: Patient is a 78 year old male with past medical history of HTN, chronic tobacco use, COPD, Asthma, BPH, gastric bypass who was admitted on 02/23/2024 for mechanical ground level fall. No overnight events noted. Patient was able to answer where he is currenlty located at, he thought he was at a nursing facility which is different from previous days when he was Alert and Oriented X 3-->currently X2. Goals of care discussed with patinet's , patient's would like additional time to discuss with son. Provider reached out to son, no picking table worker. Exam Vital Signs Temp Pulse Resp BP Pulse Ox O2 Del Method O2 Flow Rate 97.4 F 64 19 90/54 L 97 Nasal Cannula 4 02/26/24 12:00 02/26/24 12:00 02/26/24 12:00 02/26/24 12:00 02/26/24 12:00 02/26/24 12:00 02/26/24 12:00 Narrative Exam General Appearance: Alert & Oriented X2, well-nourished male who is lying in bed in no acute distress HEENT: Skull symmetrical and atraumatic. Conjunctivae pale and moist. Pupils equal, round, reactive to light and accommodation (PERRL). External ear without lesion or discharge. Straight, nares patient, dry mucosa, no discharge. Cardio: Normal Rate and Rhythm with S1 and S2 heart sounds. Possible holosystolic murmur. . No bruits on carotid auscultation. No peripheral edema or cyanosis. Lungs: Symmetric with bilateral expansion. Chest and back non-tender. Breath sounds vesicular with mild crackles. Abdomen: Non-tender, Non-distended, Normal Reactive Bowel Sounds Neuro: Yes Alert, Yes cooperative, Yes oriented to person, No place, and Yes time. Speech clear. CN grossly intact. Upper motor strength 5/5 and Lower motor strength 5/5. Sensation intact. Objective Labs 02/26/24 04:37 02/26/24 04:37 Labs: Laboratory Results - last 24 hr 02/26/24 04:37 WBC 10.3 RBC 3.35 L Hgb 11.1 L Hct 31.9 L MCV 95 MCH 33.1 MCHC 34.8 RDW Std Deviation 46.0 H Plt Count 201 D Neut % (Auto) 78 Lymph % (Auto) 14 [place] % (Auto) 8 Eos % (Auto) 0 Baso % (Auto) 0 Neut # (Auto) 8.0 H Lymph # (Auto) 1.4 [place] # (Auto) 0.8 Eos # (Auto) 0.0 Baso # (Auto) 0.0 Immature Gran # (Auto) 0.04 H Absolute Nucleated RBC 0.00 Immature Gran % 0 Nucleated RBC % 0 Sodium 138 Potassium 4.1 Chloride 105 Carbon Dioxide 25.8 Anion Gap 7 BUN 33 H Creatinine 0.7 Estim Creat Clear Calc 92.6 eGFR > 60 BUN/Creatinine Ratio 47 H Glucose 102 Calculated Osmolality 282 Calcium 9.2 Quality Measures Quality Measures VTE prophylaxis (heparin) Advance care planning discussed with:: other Assessment & Plan Assessment Current Active Medications: Generic Name Dose Route Start Last Admin Trade Name Freq PRN Reason Stop Dose Admin Acetaminophen 650 mg 02/23/24 18:02 Acetaminophen 325 Mg Tablet PO 03/24/24 18:01 Q6H PRN Fever >101.5 and pain Protocol Albuterol 2 puff 02/23/24 18:10 Albuterol Inh 8 Gm INH 03/24/24 18:09 Q6H PRN SHORTNESS OF BREATH OR WHEEZE Dexamethasone 1 mg 02/29/24 09:00 Dexamethasone 1 Mg Tablet PO 03/01/24 09:01 QDAY [facility] Protocol Dexamethasone 0.5 mg 03/02/24 09:00 Dexamethasone 1 Mg Tablet PO 04/03/24 08:59 QDAY [facility] Protocol Dexamethasone 2 mg 02/26/24 21:00 Dexamethasone 1 Mg Tablet PO 02/28/24 21:01 BID [facility] Protocol Heparin Sodium (Porcine) 5,000 unit 02/24/24 09:00 02/26/24 09:42 Heparin Sod Inj 5000 Unit/Ml Vial SC 03/09/24 08:59 5,000 unit Q12HR [facility] Administration Levetiracetam 500 mg 02/23/24 21:00 02/26/24 09:43 Levetiracetam 250 Mg Tablet PO 03/24/24 20:59 500 mg BID [facility] Administration Lisinopril 20 mg 02/26/24 09:00 02/26/24 09:43 Lisinopril 20 Mg Tablet PO 03/27/24 08:59 20 mg QDAY [facility] Administration Nicotine 21 mg 02/24/24 09:00 02/26/24 09:44 Nicotine Patch 21 Mg/24 Hr Patch.Td24 TOP 03/25/24 08:59 Not Given QDAY [facility] Ondansetron HCl 4 mg 02/23/24 18:28 Ondansetron Inj 2 Mg/Ml Inj 2 Ml IV 03/24/24 18:27 Q8HR PRN NAUSEA OR VOMITING Protocol Oxycodone HCl 2.5 mg 02/23/24 18:02 Oxycodone Hcl 5 Mg Ir Tab PO 02/28/24 18:01 Q6HR PRN PAIN SCALE 4-6 (Moderate Oxycodone HCl 5 mg 02/23/24 18:02 Oxycodone Hcl 5 Mg Ir Tab PO 02/28/24 18:01 Q6HR PRN PAIN SCALE 7-10 (Severe Pantoprazole Sodium 40 mg 02/24/24 09:00 02/26/24 09:44 Pantoprazole 40 Mg Tablet PO 03/25/24 08:59 40 mg QDAY [facility] Administration Fluticasone/Salmeterol 1 puff 02/23/24 19:30 02/26/24 11:46 Fluticasone/Salmeterol 100/50 14 Dose Inh INH 03/24/24 19:29 1 puff BIDRT [facility] Administration Tamsulosin HCl 0.4 mg 02/24/24 09:00 02/26/24 09:43 Tamsulosin Hcl 0.4 Mg Capsule PO 03/25/24 08:59 0.4 mg QDAY [facility] Administration Plan This patient is a 78 year old male with past medical history of HTN, chronic tobacco use, COPD, Asthma, BPH, gastric bypass who was admitted on 02/23/2024 for mechanical ground level fall. Currently awaiting SNF placement. Awaiting oncologist to give further recommendations. #Goals of Care: Presented patient's , Anastasia, with all options of comfort care, hospice vs home with hospice. Currently would like more time to discuss with son. Continue full code. Declined more interventions, such as MRI for lytic lesions at femur site. Plan -Follow up with family tomorrow on decision. #High grade glioma, suspected glioblastoma - s/p craniotomy and tumor resection -on 02/16/2024 at [facility] by Dr. Adán Newell, neurosurgery. Seen and evaluated by Neuro-oncology as well - patient and family were made aware of findings over zoom per documentation during which prognosis had been discussed - final path pending - case had been reviewed at [facility] on 02/19/24 with some stains pending, but dx favoring glioblastoma - post/op MRI was done on 02/18/24 showing gross total resection of the enhancing tumor in right superior frontal gyrus - Referrals made for local oncologists including Dr Anne and Dr Michele to establish care Plan: - Continue with keppra for seizure prophylaxis for 30 days until 03/17/24. Seizure precautions - Continue decadron taper as recommended by neurosurgery, recommended to keep Decadron at 2 mg PO. Decadron 2mg PO BID (02/22-02/14) --> Decadron 2 mg PO BID (02/25-02/27) --> Decadron 1mg PO qAM (02/28- 03/01) --> Decadron 0.5mg PO qAM (03/02-03/03) - Pain control PRN -PT recs: Awaiting SNF placement as per patient's they do not want to take patient to [facility] finding a new place. PWB with walker X shorter distance only, increased risk of fracture -Consult oncologist, Dr. Anne and appreciate recommendations #Lung nodules - infectious workup done at [facility] revealed negative coccidiomycosis AB, histopalsama negative, coccidiodes immitis negative, beta-D glucan negative, galactomannan negative, AFB negative; Plan: -Appreciate oncology's recommendation -Quantiferon otherwise pending - Likely neoplastic, rather than infectious, due to spiculated structure - will need outpatient PET scan - refer to outpatient pulmonology #Accelerated [place] Rhythm ,Resolved Possible Acc[place]erated [place] rhythm given 60-100 beats per minutes an less likely secondary to SVT as beats are not >100. Plan -Discontinued metoprolol per cardiology recs -NO EKG or Echo planned for now -Consult Cardiology, Dr. Ward, appreciate recommendations #HTN ?Blood pressure have been on softer side. Plan: -Hold blood pressure medications if SBP below 100 and DBP below 60 mmHg - continue with lisinopril 20mg PO daily -Continue amlodipine 2.5 once daily if blood pressure remains stable #Chronic tobacco use - nicotine patch 21mg topical daily #COPD/Asthma - not in acute exacerbation - LABA/ ICS ordered - albuterol PRN #Osteolytic Lesions: Likely secondary to malignancy -Femur CT (02/10/2024): 20 mm osteolytic lesion right femoral neck, recommend elective MRI right hip pelvis follow-up, pre and postcontrast to exclude osseous metastatic disease Plan: -No acute intervention -Family declined MRI -Orthopedics Consulted, Dr. Khan, appreciated recommendations. #BPH - continue home with flomax Health Maintenance: FEN: Regular diet DVT: on subQ heparin Code: Full Code Disp: Pt is currently admitted to floors for further management of mechanical fall, awaiting new SNF placement vs hospice. - The patient's plan was discussed with attending Dr. Schmidt and senior residents Minerva Otto MD PGY1 Internal Medicine Attending Provider Attestation/Addendum I, Gabriela Schmidt, DO, attest that I was physically present for the morales portions of the service and evaluated the patient with the resident and I reviewed and discussed the case with the resident and agree with the resident's findings and plans of care as documented above Patient seen and eval this a.m. Per nursing, patient appears to be more confused today. MRI had been ordered by Ortho to determine weightbearing status due to lytic lesions. However, expressed that there is no need to do any further interventions or diagnostic studies given overall poor prognosis of about 4 months. Case discussed with oncology who had spoken to the and [facility] neuro-oncology this morning. Pathology has revealed that patient has a grade 4 glioblastoma which is the most aggressive of its type. Given that the patient's appears to be understanding of the overall poor prognosis, the option of hospice was brought up to the by PGY1 and social welfare clerk. appears to be overwhelmed and would like for son to be involved in decision- making process. Attempt was made to contact son, but unsuccessful. Waiting for callback at this time. Patient can be discharged home on hospice versus SNF if family desires. Anticipate discharge within the next 24 hours his family does not wish to undergo any further and mentions or testing at this time. Per oncology, patient's mental status rapidly declining within the past few days, neuro-oncology at [facility] recommended possible increase of steroids. Will increase Decadron to 2 mg p.o. twice daily.
--- NOTE | 2024-02-26 15:05 | EVENTNT_ITS ---
<Statement entered by Yonatan Palma MD - 02/26/24 15:40> Goals of care discussion was performed with patient's and she was given options regarding hospice at home, comfort care at hospital and comfort care measures at SNF. Patient did understand and asked for time to decide about it and wanted to speak to her son and daughter although she does not want to proceed with further testing anymore. She already spoke to Dr. Anne, oncologist and was well aware about patient's grade 4 glioblastoma. Will likely touch base with patient's son and come up with the decision possibly tomorrow. Discontinued MRI hip and pelvis as patient's did not want to proceed with any more invasive testing. Chest x-ray was negative. All labs and orders were reviewed. Goals of care discussion was performed in the presence of rn social services Rosa, resident physician, Dr. Otto. I saw and examined the patient, and I agree with current management stated by Dr Clarita MD,PGY1. Plan of care was discussed with the attending physician and resident physician. Disclaimer: Despite multiple revisions, due to the dictation software being used, the document bellow may not be free of grammatical errors including phonetic/typographic errors. However, this does not deter from our commitment to providing health care in the patient's best interest in mind. Dr. Minerva MD, PGY 2 Documentation for date of: 02/26/24 Event Note Event Note: Goals of Care Discussion Goals of cared discussion took place on 02/26/2024 with patient's , Anastasia, in person about patient's poor prognosis given extensive mets to brain. Victorino's was understanding possible 4-6 months. Anastasia and Naif both had previous discussion of limited intervention given his poor prognosis. MRI for now of his femur, given poor prognosis. Presented patient and with three possible options: comfort care, hospice, and home with hospice.Patient and Patient's would like additional time to discuss case with son. Called son to update per request of Patient's , no berry picker/left message. Currently still full code, pending family discussion. - The patient's plan was discussed with attending Dr. Schmidt and senior residents Dr. Minerva Otto MD PGY1 Internal Medicine
--- NOTE | 2024-02-26 20:46 | PC.NURSE ---
called Dr. Logan regarding patient's BP of 83/57. Patient is alert and awake, no signs of distress, denies any chest pain and other symptoms. Per MD, will look at patient's chart, No new orders received.
--- NOTE | 2024-02-26 21:40 | PC.NURSE ---
Dr. Logan called update on pt's BP, current BP 84/57. Ordered bolus NS 250 cc. Will call MD back after bolus for update of pt's BP.
[2024-02-26] MEDS: SODIUM CHLORIDE 0.9% 250 ML 250 ML 999 ML IV (22:01)
[2024-02-26] MEDS: dexAMETHasone 1 MG TABLET 2 MG PO (22:14)
--- NOTE | 2024-02-26 22:22 | PD.ORTHCONPN ---
Subjective Subjective Brief History: Patient is a 78-year-old male who has had 1/2-year history of increasing falls. Workup at 0 he describes [facility] showed lytic lesion in right femoral neck possibly right distal femur. MRI scan of brain showed tumor. X-ray of lungs showed multiple nodules. Surgery at [facility] right frontal lobe glioblastoma stage IV Narrative: Long discussion was carried out by hospital staff and patient's and he does not want any further workup. The note described invasive workup. This is not invasive workup. It certainly would be nice to get that MRI scan of his femur. I understand and would be happy to reconsult. Exam Vital Signs Temp Pulse Resp BP Pulse Ox O2 Del Method O2 Flow Rate 97.9 F 67 16 89/54 L 97 Nasal Cannula 4 02/26/24 20:00 02/26/24 20:00 02/26/24 20:00 02/26/24 20:00 02/26/24 20:00 02/26/24 20:00 02/26/24 19:35 Blood pressure 89/54 Narrative Exam He has been transferred to third floor. If he is here tomorrow would be happy to see him. Objective - Ortho Labs 02/26/24 04:37 02/26/24 04:37 Labs: Laboratory Results - last 24 hr 02/26/24 04:37 WBC 10.3 RBC 3.35 L Hgb 11.1 L Hct 31.9 L MCV 95 MCH 33.1 MCHC 34.8 RDW Std Deviation 46.0 H Plt Count 201 D Neut % (Auto) 78 Lymph % (Auto) 14 [place] % (Auto) 8 Eos % (Auto) 0 Baso % (Auto) 0 Neut # (Auto) 8.0 H Lymph # (Auto) 1.4 [place] # (Auto) 0.8 Eos # (Auto) 0.0 Baso # (Auto) 0.0 Immature Gran # (Auto) 0.04 H Absolute Nucleated RBC 0.00 Immature Gran % 0 Nucleated RBC % 0 Sodium 138 Potassium 4.1 Chloride 105 Carbon Dioxide 25.8 Anion Gap 7 BUN 33 H Creatinine 0.7 Estim Creat Clear Calc 92.6 eGFR > 60 BUN/Creatinine Ratio 47 H Glucose 102 Calculated Osmolality 282 Calcium 9.2 Hemoglobin 11.1 Assessment & Plan Assessment Additional comments: Probable lytic lesion proximal right femoral neck and to me distal femur appears to be suspicious. Plan Very malignant glioblastoma. Again family does not want any further workup. I want a make sure that physical therapy instructs him weightbearing to tolerance right lower extremity. He is at risk for fracture if this represents malignant process which I think it most likely does. The MRI scan would give us a better assessment of the extent of disease. I do not think at this point he is a candidate for prophylactic nail. Reconsult if patient wants to workup this further. Documentation for date of: 02/26/24
--- NOTE | 2024-02-26 22:25 | PC.NURSE ---
called Dr. Logan update on pt's BP after bolus 92/63, MAP of 72. Per MD continue to monitor pt's BP, call provider when needed.
[2024-02-27] VITALS (8 sets, daily range): BP systolic 90–118; BP diastolic 52–63; PULSE 56–87; RESP 18–20; TEMP 36.2–36.7; O2SAT 94–96; BMI 22.4
[2024-02-27] MEDS: FLUTICASONE/SALMETEROL 100/50 14 DOSE INH 1 PUFF INH (07:45)
[2024-02-27] MEDS: levETIRAcetam 250 MG TABLET 500 MG PO (09:14)
[2024-02-27] MEDS: HEPARIN SOD INJ 5000 UNIT/ML VIAL SC (09:14)
[2024-02-27] MEDS: NICOTINE PATCH 21 MG/24 HR PATCH.TD24 TOP (09:16)
[2024-02-27] MEDS: SENNA TABLET 1 TAB PO (09:19)
[2024-02-27] MEDS: PANTOPRAZOLE 40 MG TABLET PO (09:19)
[2024-02-27] MEDS: TAMSULOSIN HCL 0.4 MG CAPSULE PO (09:20)
[2024-02-27] MEDS: dexAMETHasone 1 MG TABLET 2 MG PO (09:37)
--- NOTE | 2024-02-27 10:24 | PC.SS ---
Addendum entered by ANGIE Jacobs 02/27/24 15:43: [facility] called moved ETA to 4:30pm. Nurse and SNF aware. Addendum entered by ANGIE Jacobs 02/27/24 12:09: Spoke with patient's , Anastasia. She is agreeable with today's discharge plan to transition the patient to [facility]. was informed of financial responsibility for transportation and informed she was unable to cover the costs. ASAEL was obtained and signed by transfer nurse Mayelin as the patient is receiving oxygen. Transportation scheduled for 4pm with [facility]. Bed side nurse Monika was updated on ETA. Addendum entered by ANGIE Jacobs 02/27/24 12:05: SNF is requesting discharge instructions with medications recommended for the patient. Updated Dr. Palma who informed they can input notes after 1pm to provide the SNF. Carla at [facility] informs we can schedule transport this afternoon once that is received. Carla is requesting 4pm transportation time to receive the patient at their facility. Original Note: SS follow up: spoke with patient's , Anastasia who informed she wanted to proceed with comfort care measures and transition the patient back to SNF-[facility]. Carla at [facility] confirmed they can accept the patient back. Updated Dr. Palma on what Anastasia informed me.
--- NOTE | 2024-02-27 13:57 | ESDS_ITS ---
<Statement entered by Gabriela Schmidt DO - 02/28/24 07:05> I, Gabriela Schmidt DO, attest that I was physically present for the morales portions of the service and evaluated the patient with the resident and I reviewed and discussed the case with the resident and agree with the resident's findings and plans of care as documented above <Statement entered by Yonatan Palma MD - 02/27/24 16:14> I saw and examined the patient, and I agree with current management stated by Dr Clarita MD,PGY1. Plan of care was discussed with the attending physician and resident physician. Disclaimer: Despite multiple revisions, due to the dictation software being used, the document bellow may not be free of grammatical errors including phonetic/typographic errors. However, this does not deter from our commitment to providing health care in the patient's best interest in mind. Dr. Minerva MD, PGY 2 Planned Discharge Date 02/27/24 DS: Providers Provider Date of admission: 02/23/24 17:20 Primary care physician: Physician No Primary/Family Admitting Provider: Josue Camacho MD Attending Provider on Admission: Gabriela Schmidt DO Consults: 02/23/24 18:24 Referral Physical Therapy Routine Comment: Physician Instructions: 02/23/24 19:16 Referral Wound Care Routine Comment: 02/24/24 14:38 Consult to Cardiology Routine Comment: Consulting Provider: Luisa Ward 02/25/24 12:51 Consult to Oncology Routine Comment: Consulting Provider: Anatoliy Anne 02/25/24 17:44 Consult to Orthopedic Routine Comment: Consulting Provider: Felipe Khan Attending Provider on DC: Laxmi Otto MD Discharging Provider: Laxmi Otto MD DS: Diagnosis Problem List Completed Was Problem List Reviewed/Reconciled?: Yes Hospital Course Hospital Course Hospital course: Patient is a 70-year-old male with a past medical history of 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 Patient was admitted on 02/23/2020 for worsening disequilibrium and ground level fall. In hospital, goals of care discussed with family and patient with plans for SNF with comfort care. ER Course: Vitals: T 97.7 HR 65, RR 20, BP 118/62, [id number] L RA Cxr (02/26/2024): No pneumonia or pulmonary edema EKG (02/27/2024): Sinus Rhythm Head CT (02/09/2027): Recommend brain MRI follow-up, pre and postcontrast, to confirm right frontal lobe cerebral neoplasm, differential would include cerebral metastatic lesion, primary brain tumor CT Femur (02/10/2024): Axial image 38 demonstrates 20 mm osteolytic lesion right femoral neck, recommend elective MRI right hip pelvis follow-up, pre and postcontrast to exclude osseous metastatic disease. Hospital Course: During hospital admission, patient developed accelerated atrioventricular junctional rhythm that was asymptomatic. Cardiology was consulted no intervention needed. Ortho consulted for CT femur showing 28 mm osteolytic lesion right femur neck. Concern for weightbearing ability, orthopedic surgeon Dr. Hein, recommended MRI. Patient's family declined given extensive disease progression of carcinoma. Goals of care had with patient's family including Pat, patient's . Less intervention per patient's family wishes. Family is understanding of the poor prognosis likely 4-[address] Anne, radiology Onc, consulted, and patient spoke with family as well. Patient will be going with SNF with comfort care. Instructions: -Take all home medication as prescribed -Take dexamethasone 2 mg twice daily from 02/23--> 02/24 -Take dexamethasone 1 mg twice daily from 02/25--> 02/27 -Take dexamethasone 1 mg once daily from 02/28--> 03/01 -Take dexamethasone 0.5 mg once daily for 03/02--> 03/03 -Glycopyrrolate 1 mg PO TID PRN (secretions) -Lorazepam 1 mg PO Q4H PRN (agitation) -Take levetiracetam 500mg by mouth twice daily for seizure prevention. Last dose 03/17/2024. -Patient is going to get discharge to SNF with comfort measures Disposition: SNF with possibility of comfort care #High grade glioma, suspected glioblastoma - s/p craniotomy and tumor resection #Lung nodules #Accelerated Junction Rhythm ,Resolved #HTN #Chronic tobacco use #COPD/Asthma #Osteolytic Lesions, Right Femoral Neck #BPH - The patient's plan was discussed with attending Dr. Dr. Schmidt and senior residents Dr. Minerva Otto MD PGY1 Internal Medicine Time Spent with Patient Time attestation: Total time spent providing and/or coordinating discharge services: greater than 35 minutes Exam Vital Signs Temp Pulse Resp BP Pulse Ox O2 Del Method O2 Flow Rate 97.9 F 62 18 105/63 96 Nasal Cannula 4 02/27/24 12:00 02/27/24 12:00 02/27/24 12:00 02/27/24 12:00 02/27/24 12:02/27/24 12:02/27/24 12:00 Narrative Exam General Appearance: Alert & Oriented X2, well-nourished male who is lying in bed in no acute distress HEENT: Skull symmetrical and atraumatic. Conjunctivae pale pink and moist. Pupils equal, round, reactive to light and accommodation (PERRL). External ear without lesion or discharge. Straight, nares patient, dry mucosa, no discharge. Cardio: Normal Rate and Rhythm with S1 and S2 heart sounds. No murmurs or extra heart sounds auscultated. No bruits on carotid auscultation. No peripheral edema or cyanosis. Lungs: Symmetric with good expansion. Chest and back non-tender. Breath sounds vesicular with some mild rhonchi. Abdomen: Non-tender, Non-distended, Normal Reactive Bowel Sounds Neuro: YES Alert, YES cooperative, Yes oriented to person, Yes place, and No time. Speech clear. CN grossly intact. Upper motor strength 5/5 and Lower motor strength 5/5. Sensation intact. Discharge Plan Plan Patient Disposition: [facility] ([facility]) Patient condition on transfer: Stable Care Plan Goals: -Take all home medication as prescribed -Take dexamethasone 2 mg twice daily from 02/23--> 02/24 -Take dexamethasone 1 mg twice daily from 02/25--> 02/27 -Take dexamethasone 1 mg once daily from 02/28--> 03/01 -Take dexamethasone 0.5 mg once daily for 03/02--> 03/03 -Glycopyrrolate 1 mg PO TID PRN (secretions) -Lorazepam 1 mg PO Q4H PRN (agitation) -Take levetiracetam 500mg by mouth twice daily for seizure prevention. Last dose 03/17/2024. -Patient is going to get discharge to SNF with comfort measures. Prescriptions/Referrals Prescriptions/Med Rec: New dexamethasone 1 mg Tablet 1 mg PO QDAY 2 Days Qty: 2 0RF dexamethasone 1 mg Tablet 1 mg PO BID 2 Days Qty: 4 0RF nicotine 21 mg/24 hr Patch 24 Hour 21 mg top QDAY 30 Days Qty: 7 0RF dexamethasone 2 mg tablet 2 mg PO BID 1 Days Qty: 2 0RF dexamethasone 0.5 mg tablet 0.5 mg PO QDAY 2 Days Qty: 2 0RF lisinopril 20 mg Tablet 20 mg PO QDAY 30 Days Qty: 30 0RF Rx Instructions: Hold IF SBP <100 AND DBP<60 mmHg amlodipine 2.5 mg tablet 2.5 mg PO QDAY Qty: 30 0RF Rx Instructions: Hold if SBP <100 and DBP<60 mmHg levetiracetam 500 mg tablet 500 mg PO BID 21 Days Qty: 42 0RF nicotine (polacrilex) 2 mg gum 2 mg buccal Q2H Qty: 20 0RF oxycodone 5 mg capsule 5 mg PO Q6H MDD 2-2.5 PRN (Reason: pain) Qty: 14 0RF Rx Instructions: Take 0.5-1 tablet q6h as needed polyethylene glycol 3350 [Miralax] 17 gram/dose powder 4 g PO QDAY PRN (Reason: constipation) Qty: 119 0RF senna 8.6 mg capsule 17.2 mg PO QDAY PRN (Reason: constipation) Qty: 30 0RF esomeprazole magnesium [address] for susp in packet 20 mg PO QDAY Qty: 30 0RF albuterol sulfate 90 mcg/actuation aerosol powdr breath activated 1 inh inhalation QID PRN (Reason: shortness of breath or wheezing) Qty: 1 0RF Trelegy Ellipta 100-62.5-25 mcg blister with device 1 inh inhalation QDAY Qty: 28 0RF acetaminophen 500 mg capsule 1,000 mg PO BID PRN (Reason: pain, mild) Qty: 30 0RF Rx Instructions: Take 2 tablets (1,000 mg total) by mouth every 8 hrs as needed for mild pain. ondansetron HCl 4 mg tablet 4 mg PO Q8H PRN (Reason: nausea and vomiting) Qty: 14 0RF glycopyrrolate 1 mg tablet 1 mg PO TID PRN (Reason: secretions) Qty: 14 0RF lorazepam 1 mg tablet 1 mg PO Q4H PRN (Reason: agitation) Qty: 10 0RF Continued lidocaine [Lidoderm] 5 % adhesive patch,medicated 1 patch topical QDAY Qty: 30 0RF Rx Instructions: leave on most painful area for up to 12 hrs Discontinued amlodipine 2.5 mg tablet 2.5 mg 1XD hydrochlorothiazide 12.5 mg tablet 12.5 mg 1XD Referrals: Anatoliy Anne MD [Physician] - No Primary/Family,Physician [Primary Care Provider] - Patient/Caregiver Discharge Instructions Other Discharge Activity Instructions:: -Take all home medication as prescribed -Take dexamethasone 2 mg twice daily from 02/23--> 02/24 -Take dexamethasone 1 mg twice daily from 02/25--> 02/27 -Take dexamethasone 1 mg once daily from 02/28--> 03/01 -Take dexamethasone 0.5 mg once daily for 03/02--> 03/03 -Glycopyrrolate 1 mg PO TID PRN (secretions) -Lorazepam 1 mg PO Q4H PRN (agitation) -Take levetiracetam 500mg by mouth twice daily for seizure prevention. Last dose 03/17/2024. -Patient is going to get discharge to SNF with comfort measures. Education Materials: What Is Hospice?, [facility] Print Language: Tajik Stand Alone Forms: [facility] Info., Patient Portal Info Letter Discharge Order Discharge Orders: Discharge (Routine); Ordered 02/27/24 Ordered By: Yonatan Palma Quality Discharge Quality Measures VTE prophylaxis
== END 2024-02-27 16:20 | disposition skilled nursing facility (03) | DRG 55 ==
LOC: S2NX 02-26 07:04 → S3NX 02-26 13:46
PROVIDERS: Admitting Provider Student in an Organized Health Care Education/Training Program; Visit Provider Internal Medicine
DX: D49.6 Neoplasm of unspecified behavior of brain (principal); S22.41XA Multiple fractures of ribs, right side, initial encounter for closed fracture; I47.10 Supraventricular tachycardia, unspecified; I47.20 Ventricular tachycardia, unspecified; W18.30XA Fall on same level, unspecified, initial encounter; J44.89 Other specified chronic obstructive pulmonary disease; N40.0 Benign prostatic hyperplasia without lower urinary tract symptoms; I10 Essential (primary) hypertension; R91.1 Solitary pulmonary nodule; Z85.841 Personal history of malignant neoplasm of brain; F17.200 Nicotine dependence, unspecified, uncomplicated; Z98.84 Bariatric surgery status; Z75.1 Person awaiting admission to adequate facility elsewhere
CPT/HCPCS: 36415; 71045; 80048; 83735; 84100; 85025; 93225; 94640; 94664; 97162; J1643; J7050; J8540; A9270; J1644